=== PATIENT | male | born 1975 | race Caucasian/White ===

== ENCOUNTER 2018-11-22 12:46 | Inpatient (IN) ==
--- NOTE | 2018-11-22 13:19 | Emergency Department Note ---
Disposition Clinical Impression: Cellulitis Qualifiers: Site of cellulitis: trunk Site of cellulitis of trunk: abdominal wall Qualified Code(s): L03.311 - Cellulitis of abdominal wall Disposition: Still a Patient Condition: Good Referrals: Gregory Montero [Primary Care Provider] - Forms: ED Satisfaction Letter, Work/School Release Time of Disposition: 21:01 General Adult HPI - General Chief complaint: ED General Medical Stated complaint: Cath issues/don't feel well Time Seen by Provider: 11/22/18 12:48 Nursing Notes Reviewed: Yes Vital Signs Reviewed: Yes - History of Present Illness HPI Narrative: Male patient with a significant medical history presenting to the emergency department presents complaining of needing his Crawford replaced. He was recently admitted for confusion and the caregiver and fiance report that this is not significantly changed. He has been reporting a headache ever since and as well as well. Patient is well known to this facility and does appear to be deconditioned at this time. He has significant cellulitis to his pannus area on the right side of his abdomen. This appears to be secondary from where he has not had a Crawford placed in the past 8 days. He did actually pull this out and was unable to be replaced. He has been urinating and this is been sitting on the bed with his pain is in it. The area does appear to be erythematous edematous with 2 open wounds. Patient has a history of cellulitis this area. He also has some well-healing lower extremity wounds that have been addressed by caregivers as well. Family reports confusion as well as chilling. They deny any increase in his coughs. Patient has a trach patient. - Related Data Home Medications Medication Instructions Recorded Confirmed ALPRAZolam [Xanax 1 MG Tablet] 1 mg PO TID PRN 11/07/18 11/22/18 Aripiprazole [Abilify] 20 mg PO DAILY 11/07/18 11/22/18 Doxepin [Sinequan] 100 mg PO HS 11/07/18 11/22/18 Insulin Glargine [Lantus] 0 unit SQ ACHS 11/22/18 11/22/18 Insulin LISPRO [Humalog] 0 unit SQ ACHS 11/22/18 11/22/18 Previous Rx's Medication Instructions Recorded Nystatin POWDER [Nystop] 1 appl TP TID #30 gm 11/15/18 Allergies Allergy/AdvReac Type Severity Reaction Status Date / Time ciprofloxacin [From Cipro] AdvReac Hives Verified 11/22/18 13:01 dicyclomine AdvReac Hives Verified 11/22/18 13:01 nalbuphine [From Nubain] AdvReac Hives Verified 11/22/18 13:01 tramadol [From Ultram] AdvReac Hives Verified 11/22/18 13:01 All systems ED: reviewed and negative except as stated. Review of Systems: As Per HPI Constitutional: Reports: chills. Denies: fever Cardiovascular: Denies: chest pain, syncope Respiratory: Denies: cough, dyspnea Gastrointestinal: Reports: abdominal pain. Denies: nausea, vomiting, diarrhea Integumentary: Reports: rash (2 abdomen.) Past Medical History - Past Medical History Attestation: Yes The following information was validated with the patient. Source: patient Medical history: Reports: diabetes Surgical history: Reports: tracheostomy Psychiatric history: Reports: anxiety, bipolar, depression - Social History Smoking Status: Former smoker Smokeless Tobacco Status: No Alcohol use: Reports: none Drug use: Reports: none Physical Exam - General Limitations: no limitations General appearance: alert, in no apparent distress - Head Head exam: atraumatic, normocephalic, normal inspection - Eye Eye exam: Present: normal appearance, PERRL, EOMI - ENT ENT exam: normal exam, normal oropharynx, mucous membranes moist - Neck Neck exam: Present: normal inspection, full ROM, trachea midline - Chest Chest inspection: Present: normal inspection, symmetric chest wall rise - Respiratory Respiratory exam: Present: other (Crackles throughout). Absent: respiratory distress - Cardiovascular Cardiovascular exam: Present: normal rhythm, tachycardia, normal heart sounds - Abdominal Exam Abdominal exam: Present: soft, tenderness (Significant tenderness to palpation of the cellulitic area.), other (Large area of erythema that is edematous with 2 open weeping wounds to the right side of his pannus. Consistent with cellulitis.). Absent: distention, guarding, rebound, rigidity, Acosta's sign, Rovsing's sign, tenderness at McBurney's Point - Extremities Exam Extremities exam: Present: normal inspection, full ROM, other (Multiple lesions to the lower extremities. Different stages of healing.). Absent: tenderness, pedal edema - Neurological Exam Neurological exam: Present: alert, other (Pleasantly confused) - Psychiatric Psychiatric exam: Present: normal affect, normal mood - Skin Skin exam: Present: warm, dry, intact Course Course Narrative: Patient was significant cellulitis to the right abdominal wall secondary to urinating and having his abdomen in this area. Patient does appear to be pleasantly confused. He is frequently refusing treatment and has to be redirected. He did agree to a PICC placement with lab draw. We will get a CT of patient's abdomen to evaluate the extent of the cellulitis. We will start patient on empiric vancomycin as well as Zosyn. He did have recent Pseudomonas in his trachea secretions. There is no fever at this time but he is mildly tachycardic. A Crawford was able to be placed by our tech without complication. This is draining well. - Reevaluation(s) Reevaluation #1: Patient's glucose is elevated. His anion Is 8. Does not appear to be indicated at this time. We are still awaiting a CT of patient's abdomen to evaluate the venous of the cellulitis. I anticipate admission for the patient he has been given Zosyn as well as vancomycin. Reevaluation #2: Patient has been rather complicated since he has been in the emergency department. He is frequently refusing any intervention. He is now agreeable to a CT of his abdomen and for admission. This was an extensive conversation with him and initially he was stating he was sign out AMA however he is agreeable to admission at this time. Time: 19:01 Vital Signs O2 Sat by Pulse Oximetry 100 11/22/18 13:02 Temperature 97.8 F 11/22/18 13:12 Pulse Rate 98 11/22/18 18:30 Respiratory Rate 24 11/22/18 18:30 Blood Pressure 134/70 11/22/18 18:30 O2 Sat by Pulse Oximetry 100 11/22/18 18:30 Oxygen Delivery Oxygen Delivery Trach Mask Medical Decision Making - Medical Records Medical records reviewed: Yes I reviewed the patient's medical records. - Lab Data Lab results reviewed: Yes I reviewed the patient's lab results. Result diagrams: 11/22/18 15:35 11/22/18 15:35 Lab Results 11/22/18 11/22/18 11/22/18 Range/Units 15:35 15:35 15:35 WBC 14.9 H (4.3-11.1) K/mcL RBC 3.42 L (4.19-5.50) M/mcL Hgb 9.8 L (12.9-16.9) g/dL Hct 28.9 L (37.5-50.1) % MCV 84.5 (83.0-100.0) fL MCH 28.7 (28.0-33.3) pg MCHC 33.9 (31.6-35.5) g/dL RDW 13.4 (11.5-14.5) % Plt Count 192 (140-400) K/mcL MPV 10.4 (9.4-12.4) fL Immature Gran % 0.6 (0-4) % Seg Neutrophils % 62.8 % Lymphocytes % 20.8 % Monocytes % 9.6 % Eosinophils % 5.5 % Basophils % 0.7 % Neutrophils # 9.3 H (1.6-8.9) K/mcL Lymphocytes # 3.1 (0.6-4.6) K/mcL Monocytes # 1.4 H (0.0-1.3) K/mcL Eosinophils # 0.8 H (0.0-0.6) K/mcL Basophils # 0.1 (0.0-0.2) K/mcL PT 11.7 (9.4-12.1) Seconds INR 1.0 APTT 28.4 (26.0-36.0) Seconds VBG pH (7.32-7.42) pH Units VBG pCO2 (41-51) mmHg VBG pO2 (25-50) mmHg VBG HCO3 (21-27) mEq/L Sodium 126 L (136-145) mEq/L Potassium 4.4 (3.5-5.1) mEq/L Chloride 96 L (98-107) mEq/L Carbon Dioxide 23 (23-29) mEq/L BUN 32 H (6-20) mg/dL Creatinine 1.12 (0.70-1.30) mg/dL Est GFR ( Amer) > 60 (> 60) Est GFR (Non-Af Amer) > 60 (> 60) BUN/Creatinine Ratio 29 H (6-26) Glucose 585 H* (70-105) mg/dL Calculated Osmolality 296 (280-300) Lactic Acid (0.5-2.2) mmol/L Calcium 8.8 (8.6-10.3) mg/dL Phosphorus 4.1 (2.7-4.5) mg/dL Magnesium 1.8 (1.6-2.6) mg/dL Total Bilirubin 0.3 (0.3-1.0) mg/dL Direct Bilirubin 0.1 (0.0-0.2) mg/dL Indirect Bilirubin 0.2 (0.0-1.2) mg/dL AST 28 (13-39) Units/L ALT 33 (7-52) Units/L Alkaline Phosphatase 205 H (34-104) Units/L Troponin I < 0.03 (< 0.04) ng/mL Serum Total Protein 6.4 (6.4-8.9) g/dL Albumin 2.5 L (3.5-5.7) g/dL Globulin 3.9 H (2.4-3.5) g/dL Albumin/Globulin Ratio 0.6 L (1.1-2.2) Urine Color (Yellow) Urine Clarity (Clear) Urine pH (5.0-8.0) pH Units Ur Specific [place] (1.010-1.025) Urine Protein (Neg-Trace) mg/dL Urine Glucose (UA) (Normal) mg/dL Urine Ketones (Negative) mg/dL Urine Blood (Negative) Urine Nitrite (Negative) Urine Bilirubin (Negative) Urine Urobilinogen (Normal) mg/dL Ur Leukocyte Esterase (Negative) Urine Microscopic RBC (0-3) per hpf Urine Microscopic WBC (0-3) per hpf Ur Squamous Epith Cells (None-Few) per lpf Urine Bacteria (None-Few) per hpf Hyaline Casts (None-Few) per lpf Ur Culture Indicated? (NO) 11/22/18 11/22/18 11/22/18 Range/Units 15:35 15:39 16:54 WBC (4.3-11.1) K/mcL RBC (4.19-5.50) M/mcL Hgb (12.9-16.9) g/dL Hct (37.5-50.1) % MCV (83.0-100.0) fL MCH (28.0-33.3) pg MCHC (31.6-35.5) g/dL RDW (11.5-14.5) % Plt Count (140-400) K/mcL MPV (9.4-12.4) fL Immature Gran % (0-4) % Seg Neutrophils % % Lymphocytes % % Monocytes % % Eosinophils % % Basophils % % Neutrophils # (1.6-8.9) K/mcL Lymphocytes # (0.6-4.6) K/mcL Monocytes # (0.0-1.3) K/mcL Eosinophils # (0.0-0.6) K/mcL Basophils # (0.0-0.2) K/mcL PT (9.4-12.1) Seconds INR APTT (26.0-36.0) Seconds VBG pH 7.39 (7.32-7.42) pH Units VBG pCO2 35 L (41-51) mmHg VBG pO2 125 H (25-50) mmHg VBG HCO3 22 (21-27) mEq/L Sodium (136-145) mEq/L Potassium (3.5-5.1) mEq/L Chloride (98-107) mEq/L Carbon Dioxide (23-29) mEq/L BUN (6-20) mg/dL Creatinine (0.70-1.30) mg/dL Est GFR ( Amer) (> 60) Est GFR (Non-Af Amer) (> 60) BUN/Creatinine Ratio (6-26) Glucose (70-105) mg/dL Calculated Osmolality (280-300) Lactic Acid 1.3 (0.5-2.2) mmol/L Calcium (8.6-10.3) mg/dL Phosphorus (2.7-4.5) mg/dL Magnesium (1.6-2.6) mg/dL Total Bilirubin (0.3-1.0) mg/dL Direct Bilirubin (0.0-0.2) mg/dL Indirect Bilirubin (0.0-1.2) mg/dL AST (13-39) Units/L ALT (7-52) Units/L Alkaline Phosphatase (34-104) Units/L Troponin I (< 0.04) ng/mL Serum Total Protein (6.4-8.9) g/dL Albumin (3.5-5.7) g/dL Globulin (2.4-3.5) g/dL Albumin/Globulin Ratio (1.1-2.2) Urine Color Yellow (Yellow) Urine Clarity Clear (Clear) Urine pH 6.0 (5.0-8.0) pH Units Ur Specific [place] 1.022 (1.010-1.025) Urine Protein 30 H (Neg-Trace) mg/dL Urine Glucose (UA) >=1000 H (Normal) mg/dL Urine Ketones Negative (Negative) mg/dL Urine Blood Large H (Negative) Urine Nitrite Negative (Negative) Urine Bilirubin Negative (Negative) Urine Urobilinogen Normal (Normal) mg/dL Ur Leukocyte Esterase Small H (Negative) Urine Microscopic RBC 30-50 H (0-3) per hpf Urine Microscopic WBC 15-30 H (0-3) per hpf Ur Squamous Epith Cells Many H (None-Few) per lpf Urine Bacteria None Seen (None-Few) per hpf Hyaline Casts None Seen (None-Few) per lpf Ur Culture Indicated? NO. A (NO) - Radiology Data Radiology results reviewed: Yes I reviewed the patient's radiology results. Chest X-Ray 11/22/18 13:02 IMPRESSION: No evidence for acute cardiopulmonary process. D/ / 11/22/2018 13:47:41 Cheikh Jimenez MD / rob Interpreting Provider: Cheikh Jimenez MD - EKG Data EKG #1 EKG attestation: Yes I reviewed and interpreted this EKG. EKG results narrative: Sinus tachycardia at a rate of 105. [place] interval is 165. Castration is Y3. QT is 345. QTC is 456. No signs of acute ischemia. Poor R-wave progression. No significant change from previous EKG dated 11/06/2018. Attestation Statement - Attestation Attestation: I, Carlton Jacob DO, examined this patient [id number] and my medical decision-making was reviewed with Dr. Shira Bolivar, Resident Physician. I agree with the documented findings, disposition and treatment plan as described except to the extent set forth below. Please see my progress notes for details.
[2018-11-22] MEDS ORDERED: 0.9 % Sodium Chloride 500 ML IVC ONE (13:50)
[2018-11-22] MEDS ORDERED: Vancomycin (wt based) 1,000 MG VIAL IVPB SCH (14:00)
--- NOTE | 2018-11-22 14:01 | Emergency Department Note ---
Disposition Clinical Impression: Cellulitis Qualifiers: Site of cellulitis: trunk Site of cellulitis of trunk: abdominal wall Qualified Code(s): L03.311 - Cellulitis of abdominal wall Disposition: Admitted As Inpatient Condition: Fair Referrals: Gregory Montero [Primary Care Provider] - Forms: ED Satisfaction Letter, Work/School Release Time of Disposition: 23:08 General Adult HPI - General Chief complaint: ED General Medical Stated complaint: Cath issues/don't feel well Time Seen by Provider: 11/22/18 12:48 Source: patient, EMS - History of Present Illness Pain Scale: 10 - Related Data Home Medications Medication Instructions Recorded Confirmed ALPRAZolam [Xanax 1 MG Tablet] 1 mg PO TID PRN 11/07/18 11/22/18 Aripiprazole [Abilify] 20 mg PO DAILY 11/07/18 11/22/18 Doxepin [Sinequan] 100 mg PO HS 11/07/18 11/22/18 Insulin Glargine [Lantus] 0 unit SQ ACHS 11/22/18 11/22/18 Insulin LISPRO [Humalog] 0 unit SQ ACHS 11/22/18 11/22/18 Previous Rx's Medication Instructions Recorded Nystatin POWDER [Nystop] 1 appl TP TID #30 gm 11/15/18 Allergies Allergy/AdvReac Type Severity Reaction Status Date / Time ciprofloxacin [From Cipro] AdvReac Hives Verified 11/22/18 13:01 dicyclomine AdvReac Hives Verified 11/22/18 13:01 nalbuphine [From Nubain] AdvReac Hives Verified 11/22/18 13:01 tramadol [From Ultram] AdvReac Hives Verified 11/22/18 13:01 Past Medical History - Past Medical History Medical history: Reports: diabetes Surgical history: Reports: tracheostomy Psychiatric history: Reports: anxiety, bipolar, depression - Social History Smoking Status: Former smoker Smokeless Tobacco Status: No Alcohol use: Reports: none Drug use: Reports: none Physical Exam - General General appearance: alert Course Vital Signs O2 Sat by Pulse Oximetry 100 11/22/18 13:02 Temperature 97.8 F 11/22/18 13:12 Pulse Rate 98 11/22/18 18:30 Respiratory Rate 24 11/22/18 18:30 Blood Pressure 134/70 11/22/18 18:30 O2 Sat by Pulse Oximetry 100 11/22/18 18:30 Oxygen Delivery Oxygen Delivery Trach Mask Medical Decision Making - Lab Data Result diagrams: 11/22/18 15:35 11/22/18 15:35 Lab Results 11/22/18 11/22/18 11/22/18 Range/Units 15:35 15:35 15:35 WBC 14.9 H (4.3-11.1) K/mcL RBC 3.42 L (4.19-5.50) M/mcL Hgb 9.8 L (12.9-16.9) g/dL Hct 28.9 L (37.5-50.1) % MCV 84.5 (83.0-100.0) fL MCH 28.7 (28.0-33.3) pg MCHC 33.9 (31.6-35.5) g/dL RDW 13.4 (11.5-14.5) % Plt Count 192 (140-400) K/mcL MPV 10.4 (9.4-12.4) fL Immature Gran % 0.6 (0-4) % Seg Neutrophils % 62.8 % Lymphocytes % 20.8 % Monocytes % 9.6 % Eosinophils % 5.5 % Basophils % 0.7 % Neutrophils # 9.3 H (1.6-8.9) K/mcL Lymphocytes # 3.1 (0.6-4.6) K/mcL Monocytes # 1.4 H (0.0-1.3) K/mcL Eosinophils # 0.8 H (0.0-0.6) K/mcL Basophils # 0.1 (0.0-0.2) K/mcL PT 11.7 (9.4-12.1) Seconds INR 1.0 APTT 28.4 (26.0-36.0) Seconds VBG pH (7.32-7.42) pH Units VBG pCO2 (41-51) mmHg VBG pO2 (25-50) mmHg VBG HCO3 (21-27) mEq/L Sodium 126 L (136-145) mEq/L Potassium 4.4 (3.5-5.1) mEq/L Chloride 96 L (98-107) mEq/L Carbon Dioxide 23 (23-29) mEq/L BUN 32 H (6-20) mg/dL Creatinine 1.12 (0.70-1.30) mg/dL Est GFR ( Amer) > 60 (> 60) Est GFR (Non-Af Amer) > 60 (> 60) BUN/Creatinine Ratio 29 H (6-26) Glucose 585 H* (70-105) mg/dL Calculated Osmolality 296 (280-300) Lactic Acid (0.5-2.2) mmol/L Calcium 8.8 (8.6-10.3) mg/dL Phosphorus 4.1 (2.7-4.5) mg/dL Magnesium 1.8 (1.6-2.6) mg/dL Total Bilirubin 0.3 (0.3-1.0) mg/dL Direct Bilirubin 0.1 (0.0-0.2) mg/dL Indirect Bilirubin 0.2 (0.0-1.2) mg/dL AST 28 (13-39) Units/L ALT 33 (7-52) Units/L Alkaline Phosphatase 205 H (34-104) Units/L Troponin I < 0.03 (< 0.04) ng/mL Serum Total Protein 6.4 (6.4-8.9) g/dL Albumin 2.5 L (3.5-5.7) g/dL Globulin 3.9 H (2.4-3.5) g/dL Albumin/Globulin Ratio 0.6 L (1.1-2.2) Urine Color (Yellow) Urine Clarity (Clear) Urine pH (5.0-8.0) pH Units Ur Specific [place] (1.010-1.025) Urine Protein (Neg-Trace) mg/dL Urine Glucose (UA) (Normal) mg/dL Urine Ketones (Negative) mg/dL Urine Blood (Negative) Urine Nitrite (Negative) Urine Bilirubin (Negative) Urine Urobilinogen (Normal) mg/dL Ur Leukocyte Esterase (Negative) Urine Microscopic RBC (0-3) per hpf Urine Microscopic WBC (0-3) per hpf Ur Squamous Epith Cells (None-Few) per lpf Urine Bacteria (None-Few) per hpf Hyaline Casts (None-Few) per lpf Ur Culture Indicated? (NO) 11/22/18 11/22/18 11/22/18 Range/Units 15:35 15:39 16:54 WBC (4.3-11.1) K/mcL RBC (4.19-5.50) M/mcL Hgb (12.9-16.9) g/dL Hct (37.5-50.1) % MCV (83.0-100.0) fL MCH (28.0-33.3) pg MCHC (31.6-35.5) g/dL RDW (11.5-14.5) % Plt Count (140-400) K/mcL MPV (9.4-12.4) fL Immature Gran % (0-4) % Seg Neutrophils % % Lymphocytes % % Monocytes % % Eosinophils % % Basophils % % Neutrophils # (1.6-8.9) K/mcL Lymphocytes # (0.6-4.6) K/mcL Monocytes # (0.0-1.3) K/mcL Eosinophils # (0.0-0.6) K/mcL Basophils # (0.0-0.2) K/mcL PT (9.4-12.1) Seconds INR APTT (26.0-36.0) Seconds VBG pH 7.39 (7.32-7.42) pH Units VBG pCO2 35 L (41-51) mmHg VBG pO2 125 H (25-50) mmHg VBG HCO3 22 (21-27) mEq/L Sodium (136-145) mEq/L Potassium (3.5-5.1) mEq/L Chloride (98-107) mEq/L Carbon Dioxide (23-29) mEq/L BUN (6-20) mg/dL Creatinine (0.70-1.30) mg/dL Est GFR ( Amer) (> 60) Est GFR (Non-Af Amer) (> 60) BUN/Creatinine Ratio (6-26) Glucose (70-105) mg/dL Calculated Osmolality (280-300) Lactic Acid 1.3 (0.5-2.2) mmol/L Calcium (8.6-10.3) mg/dL Phosphorus (2.7-4.5) mg/dL Magnesium (1.6-2.6) mg/dL Total Bilirubin (0.3-1.0) mg/dL Direct Bilirubin (0.0-0.2) mg/dL Indirect Bilirubin (0.0-1.2) mg/dL AST (13-39) Units/L ALT (7-52) Units/L Alkaline Phosphatase (34-104) Units/L Troponin I (< 0.04) ng/mL Serum Total Protein (6.4-8.9) g/dL Albumin (3.5-5.7) g/dL Globulin (2.4-3.5) g/dL Albumin/Globulin Ratio (1.1-2.2) Urine Color Yellow (Yellow) Urine Clarity Clear (Clear) Urine pH 6.0 (5.0-8.0) pH Units Ur Specific [place] 1.022 (1.010-1.025) Urine Protein 30 H (Neg-Trace) mg/dL Urine Glucose (UA) >=1000 H (Normal) mg/dL Urine Ketones Negative (Negative) mg/dL Urine Blood Large H (Negative) Urine Nitrite Negative (Negative) Urine Bilirubin Negative (Negative) Urine Urobilinogen Normal (Normal) mg/dL Ur Leukocyte Esterase Small H (Negative) Urine Microscopic RBC 30-50 H (0-3) per hpf Urine Microscopic WBC 15-30 H (0-3) per hpf Ur Squamous Epith Cells Many H (None-Few) per lpf Urine Bacteria None Seen (None-Few) per hpf Hyaline Casts None Seen (None-Few) per lpf Ur Culture Indicated? NO. A (NO) Attestation Statement - Attestation Attestation: I, Carlton Jacob DO, examined this patient [id number] and my medical decision-making was reviewed with Dr. Shira Bolivar, Resident Physician. I agree with the documented findings, disposition and treatment plan as described except to the extent set forth below. Please see my progress notes for details. 43-year-old male presents emergency room with complaint of flow related issues. Patient has chronic indwelling Crawford secondary to nonambulatory state. Patient is also chronically disabled secondary to tracheostomy morbid obesity. Crawford catheter has not been in place for almost a days this time the patient is been urinating on his body and skin. He has large area redness and skin deterioration on the abdominal wall. Currently, the patient is denying chest pain or shortness of breath. He does not have any nausea vomiting or diarrhea. He has had intermittent chills but no fevers documented. Denies any chest pain or shortness of breath. He has been complaining of a headache without any vision change. Patient is otherwise in no distress her abdomen in the transportation blanket on a cotton by EMS. Patient looks very disheveled and on. Skin is flaking off his face and extremities. I seen this patient multiple times in the past that no seen him in this condition. Because of this patient will be placed into an ER bed and in full catheter placed and sepsis evaluation will be completed. Labs including CBC chemistry liver function testing lipase and lactic acid will be collected urinalysis chest x-ray to be completed. Disposition to be determined. First dose of antibiotics will be started secondary to concern for cellulitis. Patient is otherwise stable but does have concerning presentation here today. Disposition to be determined once full workup and treatment course have been established. Patient does have coarse crackles on lung examination but this is typical of him. Heart is regular. Abdomen does have excoriation to the skin and redness. No guarding or rigidity noted. Extremities otherwise stable. Disposition to be determined. See detailed documentation of the physical exam, medical intervention, medical decision-making and disposition in the resident physician's note. No critical care provider the patient's treatment course at this time. 1999 Patient has been waiting for CAT scan for quite a long time and at this point. Patient is declining to have the imaging modality completed before secondary to his own issues. Patient is finally accommodating that at this time. We will continue to wait for the imaging modality to be resulted prior to the patient being admitted for poor general condition and cellulitis. 220 Crawford catheter appears to be outside the bladder just proximal to the prostate. This will be addressed by urology in the inpatient setting. Antibiotic regimen has been started for the cellulitis is confirmed by CT scan. The hospitalist has been patient this time for admission process. 230 Patient was discussed with the hospitalist Dr. Maddox. No other recommendations or concerns are noted at this time. Recommendation was given by me for urology consultation tomorrow. Patient is otherwise clinically stable. He is in no other distress. Patient will have repeat Accu-Chek completed and then insulin will be given if his glucose is still elevated. She will be monitored here in the emergency Department of the admission process is completed
[2018-11-22] MEDS ORDERED: Piperacillin/Tazobactam 3.375 GM in 0.9 % Sodium Chloride Mini Bag 100 ML IVPB ONE (14:09)
[2018-11-22] MEDS ORDERED: Isovue-370 500 ML BOTTLE IVP ONE (14:10)
[2018-11-22 15:46] LABS: Bilirubin,Urine Negative (Negative); Blood,Urine Large (Negative); Clarity,Urine Clear (Clear); Color,Urine Yellow (Yellow); Glucose,Urine (UA) >=1000 mg/dL (Normal); Ketones,Urine Negative (Negative); Leukocyte Esterase,Urine Small (Negative); Nitrite,Urine Negative (Negative); Protein,Urine 30 mg/dL (Neg-Trace); Specific Gravity,Urine 1.022 (1.010-1.025); Urobilinogen,Urine Normal (Normal)
[2018-11-22 16:01] LABS: Basophils # 0.1 K/mcL (0.0-0.2); Basophils % 0.7 %; Eosinophils # 0.8 K/mcL (0.0-0.6); Eosinophils % 5.5 %; Hematocrit 28.9 % (37.5-50.1); Hemoglobin 9.8 g/dL (12.9-16.9); Immature Granulocytes % 0.6 % (0-4); Lymphocytes # 3.1 K/mcL (0.6-4.6); Lymphocytes % 20.8 %; Mean Corpuscular HGB Conc 33.9 g/dL (31.6-35.5); Mean Corpuscular Hemoglobin 28.7 pg (28.0-33.3); Mean Corpuscular Volume 84.5 fL (83.0-100.0); Mean Platelet Volume 10.4 fL (9.4-12.4); Monocytes # 1.4 K/mcL (0.0-1.3); Monocytes % 9.6 %; Neutrophils # 9.3 K/mcL (1.6-8.9); Platelet Count 192 K/mcL (140-400); Red Blood Count 3.42 M/mcL (4.19-5.50); Red Cell Distribution Width 13.4 % (11.5-14.5); Segmented Neutrophils % 62.8 %
[2018-11-22 16:05] LABS: Prothrombin Time 11.7 Seconds (9.4-12.1)
[2018-11-22 16:09] LABS: Activated Partial Thrombo Time 28.4 Seconds (26.0-36.0)
[2018-11-22 16:10] LABS: Bacteria,Urine None Seen per hpf (None-Few); Hyaline Casts,Urine None Seen per lpf (None-Few); RBC,Urine 30-50 per hpf (0-3); Squamous Epithelial Cell,Urine Many per lpf (None-Few); WBC,Urine 15-30 per hpf (0-3)
[2018-11-22 16:27] LABS: Alanine Aminotransferase 33 Units/L (7-52); Albumin 2.5 g/dL (3.5-5.7); Albumin/Globulin Ratio 0.6 (1.1-2.2); Alkaline Phosphatase 205 Units/L (34-104); Aspartate Amino Transferase 28 Units/L (13-39); BUN/Creatinine Ratio 29 (6-26); Bilirubin,Direct 0.1 mg/dL (0.0-0.2); Bilirubin,Indirect 0.2 mg/dL (0.0-1.2); Bilirubin,Total 0.3 mg/dL (0.3-1.0); Blood Urea Nitrogen 32 mg/dL (6-20); Calcium 8.8 mg/dL (8.6-10.3); Carbon Dioxide 23 mEq/L (23-29); Chloride 96 mEq/L (98-107); Globulin 3.9 g/dL (2.4-3.5); Glucose 585 mg/dL (70-105); Magnesium 1.8 mg/dL (1.6-2.6); Osmolality,Calculated 296 (280-300); Phosphorous 4.1 mg/dL (2.7-4.5); Potassium 4.4 mEq/L (3.5-5.1); Sodium 126 mEq/L (136-145); Total Protein 6.4 g/dL (6.4-8.9); Troponin I < 0.03 ng/mL (< 0.04); eGFR For Non-African Americans > 60 (> 60)
[2018-11-22 17:03] LABS: VBG HCO3 22 mEq/L (21-27); VBG PCO2 35 mmHg (41-51); VBG PH 7.39 pH Units (7.32-7.42); VBG PO2 125 mmHg (25-50)
--- NOTE | 2018-11-23 03:23 | Internal Med History&Physical ---
Date of Encounter: 11/23/18 Time of Encounter: 03:15 Internal Medicine - H&P: HPI Chief complaint: replace cardenas Admitted From: Home History of present illness: Mr. Dunaway is a 43 year old male asked medical history of diabetes, chronic tracheostomy and chronic indwelling Cardenas catheter who came to ER to get his Cardenas replaced. Patient is not a good historian and most history was obtained from ER charts and previous charts. He is a nonambulatory due to his morbid obesity and has chronic Cardenas catheter. He pulled out his catheter and for the past few days has been urinating on himself. He complained of some headache in ER. Patient had extensive excoriation his lower extremity and redness on his abdomen and some scaling on his face. He was evaluated in the ER which showed elevated white count, hyperglycemia and some hyponatremia. Patient was started on empiric antibiotics. His Cardenas catheter was replaced. Chest x-ray was unre markable. Patient had abdominal CT done which showed a Cardenas was outside of her bladder in urethra, subcutaneously mouth abdominal wall, splenomegaly and cholelithiasis. Patient was admitted subsequently for further management for cellulitis. He received vancomycin and Zosyn and 500 mL of normal saline and transferred to the floor. Patient was interviewed on the floor. Patient wanted to eat. Complains of itching on his lower extremity. Denies any difficulty breathing. Previously refusing to get Cardenas catheter out even after discussing that his Cardenas catheter was not in the correct position. He agreed to get his Cardenas catheter out and then stop answering any questions. He did not offer any complaints after and wants to talk to the nurse to get food. Past Med Surg Social Fam HX - Past Medical History Medical history: diabetes, seizures Additional medical history: cellulitis of left foot. urinary retention requiring chronic cardenas. trach w/O2 Psychiatric history: anxiety, bipolar, depression - Past Surgical History Surgical History: tracheostomy Additional surgical history: left eye retinal surgery - Social History Smoking Status: Former smoker Smokeless Tobacco Status: No Alcohol use: none Drug use: none - Family History Mother Living Status: Hx Family Cardiac Disorders: Yes Hx Family Endocrine Disorder: Yes Father Living Status: Hx Family Cancer: Yes Internal Medicine - H&P: Meds ALPRAZolam [Xanax 1 MG Tablet] 1 mg PO TID PRN 11/07/18 [History] Aripiprazole [Abilify] 20 mg PO DAILY 11/07/18 [History] Doxepin [Sinequan] 100 mg PO HS 11/07/18 [History] Nystatin POWDER [Nystop] 1 appl TP TID #30 gm 11/15/18 [Rx] Insulin Glargine [Lantus] 0 unit SQ ACHS 11/22/18 [History] Insulin LISPRO [Humalog] 0 unit SQ ACHS 11/22/18 [History] Allergy/AdvReac Type Severity Reaction Status Date / Time ciprofloxacin [From Cipro] AdvReac Hives Verified 11/22/18 13:01 dicyclomine AdvReac Hives Verified 11/22/18 13:01 nalbuphine [From Nubain] AdvReac Hives Verified 11/22/18 13:01 tramadol [From Ultram] AdvReac Hives Verified 11/22/18 13:01 All Systems PM: A 10-system review of systems was performed and is negative for pertinent findings except as documented above in the HPI. - Constitutional Vitals: Temp Pulse Resp BP Pulse Ox 97.6 F 118 14 111/67 100 11/23/18 00:53 11/23/18 00:53 11/23/18 00:53 11/23/18 00:53 11/23/18 00:53 Exam: Constitutional: Vitals as noted. Conversant. No Apparent Distress. Disheveled and lying naked on bed. Non cooperative with exam. ENT : Grossly normal hearing. tracheostomy in place Respiratory : transmitted secretory sounds. No accessory muscle use, rales, rhonchi or wheezes Cardiovascular : tachycardic, +S1, +S2. no murmur, gallop, rubs. GI/Abdominal : Lying on Rt side of belly and not moving for good exam. morbidly obese. cardenas in place Musculoskeletal: no edema or cyanosis. no calf tenderness. Neurological: grossly normal motor and sensory exam. Skin: Multiple excoriation with bleeding noticed on bilateral lower extremities. Skin excoriation and maceration noted in the groin. Could not evaluate complete extent of swelling and erythema present in the groin given his morbid obesity. He refuses to turn to fully examine. Skin flaking on bilateral lower extremities. Internal Med - H&P Results - Labs CBC & Chem 7: 02/26/19 15:35 11/22/18 15:35 Labs: Short CBC 11/22/18 Range/Units 15:35 WBC 14.9 H (4.3-11.1) K/mcL Hgb 9.8 L (12.9-16.9) g/dL Hct 28.9 L (37.5-50.1) % Plt Count 192 (140-400) K/mcL Neutrophils # 9.3 H (1.6-8.9) K/mcL BMP 11/22/18 15:35 Sodium 126 L Potassium 4.4 Chloride 96 L Carbon Dioxide 23 BUN 32 H Creatinine 1.12 Glucose 585 H* Calcium 8.8 Cardiac Enzymes 11/22/18 Range/Units 15:35 Troponin I < 0.03 (< 0.04) ng/mL Liver Function 11/22/18 Range/Units 15:35 Total Bilirubin 0.3 (0.3-1.0) mg/dL Direct Bilirubin 0.1 (0.0-0.2) mg/dL AST 28 (13-39) Units/L ALT 33 (7-52) Units/L Alkaline Phosphatase 205 H (34-104) Units/L Albumin 2.5 L (3.5-5.7) g/dL Urine 11/22/18 Range/Units 15:39 Urine Color Yellow (Yellow) Urine Clarity Clear (Clear) Urine pH 6.0 (5.0-8.0) pH Units Ur Specific [place] 1.022 (1.010-1.025) Urine Protein 30 H (Neg-Trace) mg/dL Urine Glucose (UA) >=1000 H (Normal) mg/dL - ABG Interpretation ABG results: 11/22/18 16:54 VBG pH 7.39 VBG pCO2 35 L VBG pO2 125 H VBG HCO3 22 - Impressions ITS Impressions Chest X-Ray 11/22/18 13:02 IMPRESSION: No evidence for acute cardiopulmonary process. D/ / 11/22/2018 13:47:41 Cheikh Jimenez MD / rob Interpreting Provider: Cheikh Jimenez MD Abdomen/Pelvis CT 11/22/18 14:10 IMPRESSION: Cardenas catheter retention balloon located within the urethra, likely its membranous portion. Subcutaneous edema of the right anterior abdominal wall with overlying skin thickening, compatible with cellulitis. No subcutaneous focal fluid collection. Cholelithiasis. Splenomegaly with morphology of the liver worrisome for chronic disease, progressed since the prior study 2007. Findings were discussed with Dr. Jacob At 10:16 pm on 11/22/2018. D/ / Kia Gallardo Cha, MD / Kia Gallardo Cha, MD Interpreting Provider: Kia Gallardo Cha, MD - Assessment and Plan (1) Cellulitis Current Visit: Yes Status: Acute Assessment and plan: - Continue patient on vancomycin and Zosyn. - f/u blood cultures - Needs cardenas replace to allow better healing - Given patient's uncooperative nature patient had risk of further deterioration. Qualifiers: Site of cellulitis: trunk Site of cellulitis of trunk: abdominal wall Qualified Code(s): L03.311 - Cellulitis of abdominal wall (2) Hyperglycemia Current Visit: No Status: Acute Assessment and plan: - Patient has diabetes. - Keep patient on sliding scale insulin every 4 hr and start on Levemir. (3) Chronic indwelling Cardenas catheter Current Visit: No Status: Chronic Assessment and plan: - Has Cardenas catheter that is small position. Previously refused to take it out but now agrees to it. We will remove the Cardenas catheter if he continues to agree. 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
[2018-11-23] MEDS ORDERED: Naloxone 0.4 MG/ML INJ IVP PRN (03:35)
[2018-11-23] MEDS ORDERED: ALPRAZolam 1 MG TABLET PO PRN (03:56)
[2018-11-23] MEDS ORDERED: Insulin DETEMIR 100 UNIT/ML X5UNITS SQ ONE (04:15)
[2018-11-23 06:05] LABS: Mean Corpuscular Hemoglobin 28.6 pg (28.0-33.3); Platelet Count 257 K/mcL (140-400)
[2018-11-23 06:06] LABS: Hematocrit 34.9 % (37.5-50.1); Hemoglobin 11.6 g/dL (12.9-16.9); Mean Corpuscular HGB Conc 33.2 g/dL (31.6-35.5); Mean Corpuscular Volume 86.2 fL (83.0-100.0); Mean Platelet Volume 10.5 fL (9.4-12.4); Red Blood Count 4.05 M/mcL (4.19-5.50); Red Cell Distribution Width 13.7 % (11.5-14.5)
[2018-11-23 06:23] LABS: Calcium 8.8 mg/dL (8.6-10.3); Potassium 5.4 mEq/L (3.5-5.1)
[2018-11-23 07:07] LABS: Lymphocytes # 0.6 K/mcL (0.6-4.6); Neutrophils # 30.6 K/mcL (1.6-8.9)
[2018-11-23 07:08] LABS: Platelet Estimate Normal (Normal)
[2018-11-23] MEDS: Insulin LISPRO 300 UNITS/3 ML VIAL SQ SCH ×2 (07:52→13:18)
[2018-11-23] MEDS: ARIPiprazole 10 MG TABLET PO SCH (07:52)
[2018-11-23] MEDS: Piperacillin/Tazobactam 3.375 GM in 0.9 % Sodium Chloride Mini Bag 100 ML IVPB SCH ×2 (07:54→18:45)
--- NOTE | 2018-11-23 09:55 | Infectious Disease Consult ---
Date of Encounter: 11/23/18 Time of Encounter: 09:51 Assessment and Plan (1) Sepsis Status: Acute Assessment and plan: Patient on admission met sepsis criteria with 2 SIRS: WBC 14.9, HR 108. -Etiology unknown, likely bacterial from skin angus -Source likely cellulitis -patient continues to meet severe sepsis criteria -afebrile, HR 102, hemodynamically stable -WBC 31.2 (yesterday 14.9) increased -lactic acid 6.3, 2.4,1.3 worsening -11/22/19 and 18 blood cultures NTD x2 -Urinalysis: 30 protein, glucose > 1000, blood, leukocyte esterase, WBC 15-30 -respiratory culture on 11/08/2018 growing pseudomonas aeruginosa and Providencia stuartti -Chest x-ray unremarkable -Abdomen/pelvis CT demonstrating Cardenas catheter in the urethra, subcutaneous edema of the right anterior abdominal wall with overlying skin thickening compatible with cellulitis. No subcutaneous focal fluid collection. Cholelithiasis. Splenomegaly with morphology of liver worrisome for chronic disease which is progressed since 2007. Plan: -will continue current antibiotic regimen for MRSA coverage for the cellulitis and due to recent respiratory culture on 11/08/2018 -continue vancomycin day 2 -continue Zosyn day 2 -continue nystatin -ordered respiratory infectious panel -await blood cultures -repeat lactic acid Qualifiers: Sepsis type: sepsis due to unspecified organism Qualified Code(s): A41.9 - Sepsis, unspecified organism (2) Cellulitis Status: Acute Assessment and plan: Cellulitis of the upper extremities bilaterally and abdomen -Abdomen/pelvis CT demonstrating Cardenas catheter in the urethra, subcutaneous edema of the right anterior abdominal wall with overlying skin thickening compatible with cellulitis. No subcutaneous focal fluid collection. Cholelithiasis. Splenomegaly with morphology of liver worrisome for chronic disease which is progressed since 2007. -It is that of the patient also have multiple cuts on his lower extremities bilaterally and he has some erythema in the inguinal region Plan: -currently receiving vancomycin -currently receiving Zosyn -continue nystatin Qualifiers: Site of cellulitis: trunk Site of cellulitis of trunk: abdominal wall Qualified Code(s): L03.311 - Cellulitis of abdominal wall (3) Altered mental status Status: Acute Assessment and plan: Patient is with altered mental status alert and oriented x 0. There is no family at the bedside. This is in the setting of severe sepsis. -Etiology is most likely secondary infection including cellulitis, possible viral infection -of note, during patient's last admission and 11/08/2018 he was noted to be confused then as well which was secondary to infection of pneumonia and DKA. Acute intracranial abnormalities such as stroke had been ruled out with Angio CT head and head CT. Plan: -treat the infectious etiology -primary team to manage Qualifiers: Altered mental status type: unspecified Qualified Code(s): R41.82 - Altered mental status, unspecified (4) Chronic indwelling Cardenas catheter Status: Chronic Assessment and plan: Chronic indwelling Cardenas catheter. Patient presented complaining that it fell out. In the ED when replaced was found on imaging to be in incorrect placement and needs replaced again. -Urinalysis: 30 protein, glucose > 1000, blood, leukocyte esterase, WBC 15-30 -Spoke with the patient's nurse whom stated he would replace the Cardenas catheter (5) Tracheostomy in place Status: Chronic Assessment and plan: Chronic tracheostomy in place. (6) Diabetes mellitus Status: Chronic Assessment and plan: History of diabetes taking insulin. -Glucose elevated -management per primary team Qualifiers: Diabetes mellitus type: type 2 Diabetes mellitus usp insulin use: with usp use Diabetes mellitus complication status: with hyperglycemia Qualified Code(s): E11.65 - Type 2 diabetes mellitus with hyperglycemia; Z79.4 - [facility] (current) use of insulin (7) Morbid obesity with BMI of 60.0-69.9, adult Status: Chronic Assessment and plan: Patient is morbidly obese. Bedbound, immobile. Infectious Disease HPI - Data of Consult Patient: new to practice Consult date: 11/23/18 Requesting Physician: Aliyah Maddox MD Primary Care Provider: Gregory Montero - Consult Narrative Reason for consult: Cellulitis History of present illness: Mr. Dunaway is a 43 year old male who presented on 11/22/2018 complaining of needing Cardenas catheter replaced. Infectious disease was consulted on 11/23/2018 for cellulitis and increasing leukocytosis with recommendations on antibiotics. The patient has a past medical history of chronic Cardenas catheter, tracheostomy, morbid obesity bedbound, diabetes. Upon examination of the patient he is alert and oriented to person only and is sitting in bed comfortably. There is no family at bedside. The patient is unable to give a full history so medical records are primary source of information. Per medical records the patient presents the ED complaining of not being able to replace his chronic Cardenas catheter after he pulled it out. Per records this is happened many times in the past. On examination the patient was noted to be erythematous particularly on his upper extremities bilaterally and abdomen. In the ED he complained of a headache, itchiness on lower extremities, chills. Denied shortness of breath. Initial vitals in the ED demonstrated afebrile, HR 108, BP 121/63. WBC 14.9, hemoglobin 9.8, platelets 192, sodium 126, potassium 4.4, creatinine 1.12, glucose 585, lactic acid 1.3, alkaline phosphatase 205. Urinalysis: 30 protein, glucose > 1000, blood, leukocyte esterase, WBC 15-30. Chest x-ray unremarkable. Abdomen/pelvis CT demonstrating Cardenas catheter in the urethra, subcutaneous edema of the right anterior abdominal wall with overlying skin thickening compatible with cellulitis. No subcutaneous focal fluid collection. Cholelithiasis. Splenomegaly with morphology of liver worrisome for chronic disease which is progressed since 2007. In the ED blood cultures were taken, the patient was given vancomycin and Zosyn. Cardenas catheter was replaced, however based on abdominal CT it shows that is in incorrect placing. CC: Aliyah Maddox MD Past Med Surg Social Fam HX - Past Medical History Source: old records reviewed Medical history: diabetes, seizures Additional medical history: cellulitis of left foot. urinary retention requiring chronic cardenas. trach w/O2 Psychiatric history: anxiety, bipolar, depression - Past Surgical History Surgical History: tracheostomy Additional surgical history: left eye retinal surgery - Social History Smoking Status: Former smoker Smokeless Tobacco Status: No Alcohol use: none Drug use: none - Family History Father Living Status: Hx Family Cancer: Yes Mother Living Status: Hx Family Cardiac Disorders: Yes Hx Family Endocrine Disorder: Yes Infectious Disease-CN:Meds RX: ALPRAZolam [Xanax 1 MG Tablet] 1 mg PO TID PRN 11/07/18 [History] RX: Aripiprazole [Abilify] 20 mg PO DAILY 11/07/18 [History] RX: Doxepin [Sinequan] 100 mg PO HS 11/07/18 [History] RX: Nystatin POWDER [Nystop] 1 appl TP TID #30 gm 02/19/19 [Rx] Insulin Glargine [Lantus] 0 unit SQ ACHS 11/22/18 [History] Insulin LISPRO [Humalog] 0 unit SQ ACHS 11/22/18 [History] Allergy/AdvReac Type Severity Reaction Status Date / Time ciprofloxacin [From Cipro] AdvReac Hives Verified 11/22/18 13:01 dicyclomine AdvReac Hives Verified 11/22/18 13:01 nalbuphine [From Nubain] AdvReac Hives Verified 11/22/18 13:01 tramadol [From Ultram] AdvReac Hives Verified 11/22/18 13:01 ROS unobtainable: due to mental status Exam - Constitutional Vitals: Temp Pulse Resp BP Pulse Ox 97.4 F L 102 22 109/69 100 11/23/18 07:20 11/23/18 07:20 11/23/18 07:20 11/23/18 07:20 11/23/18 07:20 Exam: Gen.: Vitals noted. No acute distress. AAOx0 HEENT: oropharynx clear, Normocephalic, atraumatic, trach Neck: Supple. No adenopathy. Cardiac: RRR, no murmur, +S1/S2 Pulmonary: bilaterally rhonchi, no wheezes or rales, equal chest expansion Abdomen: soft, nontender, Bowel sounds noted, no guarding skin: erythema on bilateral upper extremities, right side of abdomen Extremities: no BLE edema, nontender calf, no cyanosis Neuro: A&Ox0, moves all extremities Infectious Disease CN: Results - Labs CBC & Chem 7: 11/24/18 04:41 11/24/18 04:41 Cultures: Cultures 11/22/18 15:35 Blood Culture - Preliminary Peripheral Venipuncture Culture is incubating and being continuously monitored for growth. Final report to follow. 11/22/18 15:35 Blood Culture - Preliminary Peripheral Venipuncture Culture is incubating and being continuously monitored for growth. Final report to follow. Serology: Serology 11/22/18 Range/Units 15:39 Urine Color Yellow (Yellow) Urine Clarity Clear (Clear) Urine pH 6.0 (5.0-8.0) pH Units Ur Specific [place] 1.022 (1.010-1.025) Urine Protein 30 H (Neg-Trace) mg/dL Urine Glucose (UA) >=1000 H (Normal) mg/dL Urine Ketones Negative (Negative) mg/dL Urine Blood Large H (Negative) Urine Nitrite Negative (Negative) Urine Bilirubin Negative (Negative) Urine Urobilinogen Normal (Normal) mg/dL Ur Leukocyte Esterase Small H (Negative) Urine Microscopic RBC 30-50 H (0-3) per hpf Urine Microscopic WBC 15-30 H (0-3) per hpf Ur Squamous Epith Cells Many H (None-Few) per lpf Urine Bacteria None Seen (None-Few) per hpf Hyaline Casts None Seen (None-Few) per lpf Ur Culture Indicated? NO. A (NO) Consult Discharge Plan - Plan Referrals: Gregory Montero [Primary Care Provider] - - Attending Attestation I examined this patient and my medical decision-making was reviewed with the Resident Physician. I agree with the documented findings, disposition and treatment plan as described except to the extent set forth below. This is an addendum to original report dictated by resident physician. Please refer to residents note for full detail. Patient is a 43-year-old gentleman who has an extensive past medical history mentioned below who was otherwise bedridden for the most part. Has a tracheos tano. An indwelling Cardenas catheter with morbid obesity BMI 45.8 presented to [place] with altered mental status and confusion. When patient arrives he was noted to be septic. Patient was also noted to have cellulitis of his pannus. We were asked to evaluate the patients make further recommendations. Assessment and plan: 1.sepsis 2.cellulitis 3.diabetes mellitus 4.morbid obesity 5.indwelling Cardenas catheter and tracheostomy Recommendations Based on the patients previous cultures from the sputum back in October 2018 which was positive for pseudomonas aeruginosa and Providencia stuartti we will start the patient on broad-spectrum antibiotics including vancomycin and Zosyn. Goal vancomycin trough 10-15. Monitor labs and for drug toxicity. Duration of treatment probably 14 days but hopefully we can de-escalate on oral option eventually
[2018-11-23 10:02] LABS: Estimated Average Glucose 272 mg/dl; Hemoglobin A1C 11.1 %
[2018-11-23] MEDS: Nystatin POWDER 30 GM BOTTLE TP SCH ×3 (11:45→21:05)
[2018-11-23] MEDS: 0.9 % Sodium Chloride 1,000 ML IVC SCH ×2 (11:45→21:05)
[2018-11-23] MEDS ORDERED: Insulin LISPRO 300 UNITS/3 ML VIAL SQ ONE (12:50)
[2018-11-23 14:13] LABS: Potassium 5.3 mEq/L (3.5-5.1)
[2018-11-23] MEDS ORDERED: *HR* Dextrose 50 % in Water (Syg) 50 ML SYRINGE IVP PRN ×3 (14:34→19:49)
[2018-11-23] MEDS ORDERED: Insulin Human Regular 100 UNIT in 0.9 % Sodium Chloride 100 ML IVC SCH ×2 (14:45→21:15)
[2018-11-23] MEDS ORDERED: Dextrose Gel 15 GM/37.5 ML TUBE PO PRN ×4 (14:58→19:49)
[2018-11-23] MEDS ORDERED: D5% in Water 1,000 ML IVC PRN ×2 (14:58→19:49)
[2018-11-23] MEDS ORDERED: Dextrose 4 GM Chewable Tablets PO PRN ×4 (14:58→19:49)
--- NOTE | 2018-11-23 16:12 | Electrocardiograph Report ---
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
[2018-11-23] MEDS ORDERED: Insulin LISPRO 300 UNITS/3 ML VIAL SQ SCH ×2 (16:30→21:00)
--- NOTE | 2018-11-23 17:05 | Internal Med Progress Note ---
Hospitalist Progress Note - Encounter Date of Encounter: 11/23/18 Time of Encounter: 17:00 - Subjective Interval History: 43 year old male asked medical history of diabetes, chronic tracheostomy and chronic indwelling Cardenas catheter who came to ER to get his Cardenas replaced. Patient is not a good historian and most history was obtained from ER charts and previous charts. He is a nonambulatory due to his morbid obesity and has chronic Cardenas catheter. He pulled out his catheter and for the past few days has been urinating on himself. He complained of some headache in ER. Patient had extensive excoriation his lower extremity and redness on his abdomen and some scaling on his face - Exam Vitals: Temp Pulse Resp BP Pulse Ox 97.7 F 108 22 118/68 100 11/23/18 15:57 11/23/18 15:57 11/23/18 15:57 11/23/18 15:57 11/23/18 15:57 Exam: Constitutional: Vitals as noted. Conversant. No Apparent Distress. Disheveled and lying naked on bed. Non cooperative with exam. ENT : Grossly normal hearing. tracheostomy in place Respiratory : transmitted secretory sounds. No accessory muscle use, rales, rhonchi or wheezes Cardiovascular : tachycardic, +S1, +S2. no murmur, gallop, rubs. GI/Abdominal : Lying on Rt side of belly and not moving for good exam. morbidly obese. cardenas in place Musculoskeletal: no edema or cyanosis. no calf tenderness. Neurological: grossly normal motor and sensory exam. Skin: Multiple excoriation with bleeding noticed on bilateral lower extremities. Skin excoriation and maceration noted in the groin. Could not evaluate comp lete extent of swelling and erythema present in the groin given his morbid obesity. He refuses to turn to fully examine. Skin flaking on bilateral lower extremities. - Assessment and Plan (1) Sepsis Current Visit: Yes Status: Acute Assessment and Plan: Sesis 2/2 to cellulitis vs pneumonia. Continue vanc and zosyn. F/U cultures. Worsening leukocytosis with elevated lactate. ID recs appreciated (2) Cellulitis Current Visit: Yes Status: Acute Assessment and Plan: - Continue patient on vancomycin and Zosyn. - f/u blood cultures - Needs cardenas replace to allow better healing - Given patient's uncooperative nature patient had risk of further deterioration. (3) Hyperglycemia Current Visit: Yes Status: Acute Assessment and Plan: Uncontrolled hyperglycemia with blood sugar in the high 500s. Patient has no anion gap Started on an insulin drip due to severely uncontrolled hyperglycemia. Transition back to basal insulin once sugars are controlled (4) Morbid obesity with BMI of 60.0-69.9, adult Current Visit: Yes Status: Chronic Assessment and Plan: Diet and weight loss (5) Tracheostomy in place Current Visit: Yes Status: Chronic Assessment and Plan: Continue trach care (6) Diabetes mellitus Current Visit: Yes Status: Chronic Assessment and Plan: As above (7) Chronic indwelling Cardenas catheter Current Visit: Yes Status: Chronic Assessment and Plan: Catheter was dislodged prior to admission. Urology consulted for replacement due to difficulty in placing - Time Spent with Patient Total time spent is greater than 50% in coordination of care (as documented) at patient's floor/unit and/or counseling patient: Internal Medicine: Result - Labs CBC & Chem 7: 11/23/18 05:45 11/23/18 12:40 Labs: Short CBC 11/23/18 Range/Units 05:45 WBC 31.2 H* D (4.3-11.1) K/mcL Hgb 11.6 L D (12.9-16.9) g/dL Hct 34.9 L (37.5-50.1) % Plt Count 257 (140-400) K/mcL Neutrophils # 30.6 H (1.6-8.9) K/mcL BMP 11/23/18 11/23/18 05:45 12:40 Sodium 130 L 127 L Potassium 5.4 H 5.3 H Chloride 98 97 L Carbon Dioxide 20 L 19 L BUN 35 H 38 H Creatinine 1.59 H 1.68 H Glucose 589 H* 582 H* Calcium 8.8 8.0 L - ABG Interpretation ABG results: PT/INR, D-dimer PT 11.7 Seconds (9.4-12.1) 11/22/18 15:35 - Impressions Impressions Abdomen/Pelvis CT 11/22/18 14:10 IMPRESSION: Cardenas catheter retention balloon located within the urethra, likely its membranous portion. Subcutaneous edema of the right anterior abdominal wall with overlying skin thickening, compatible with cellulitis. No subcutaneous focal fluid collection. Cholelithiasis. Splenomegaly with morphology of the liver worrisome for chronic disease, progressed since the prior study 2007. Findings were discussed with Dr. Jacob At 10:16 pm on 11/22/2018. D/ / Kia Gallardo Cha, MD / Kia Gallardo Cha, MD Interpreting Provider: Kia Gallardo Cha, MD Consult Discharge Plan - Plan Referrals: Gregory Montero [Primary Care Provider] - (1) Sepsis Qualifiers: Sepsis type: sepsis due to unspecified organism Qualified Code(s): A41.9 - Sepsis, unspecified organism (2) Cellulitis Qualifiers: Site of cellulitis: trunk Site of cellulitis of trunk: abdominal wall Qualified Code(s): L03.311 - Cellulitis of abdominal wall (6) Diabetes mellitus Qualifiers: Diabetes mellitus type: type 2 Diabetes mellitus [employer] insulin use: with residential use Diabetes mellitus complication status: with hyperglycemia Qualified Code(s): E11.65 - Type 2 diabetes mellitus with hyperglycemia; Z79.4 - FDC (current) use of insulin
[2018-11-23] MEDS ORDERED: Vancomycin 1 EACH in 0.9 % Sodium Chloride 250 ML IVPB SCH (18:45)
--- NOTE | 2018-11-23 19:07 | Urology - Consult Note ---
Date of Encounter: 11/23/18 Time of Encounter: 19:05 - Assessment and Plan (1) Sepsis Current Visit: Yes Status: Acute Assessment and plan: Patient sepsis likely secondary to UTI and chronic indwelling urethral catheter. Recommend to continue broad-spectrum antimicrobial coverage until cultures return. Qualifiers: Sepsis type: sepsis due to unspecified organism Qualified Code(s): A41.9 - Sepsis, unspecified organism (2) Chronic indwelling Cardenas catheter Current Visit: Yes Status: Chronic Assessment and plan: Patient's catheter balloon was deflated. I then gently advanced the catheter with some resistance around the patient's prostate. and then reinflated the catheter balloon which appeared to stay within the patient's bladder. At this time the patient's catheter is draining adequately and without hematuria. Recommend to keep catheter in place. Patient will need follow-up in 3-4 weeks for catheter change in the urology office. Please call with any questions. Urology CN:HPI Consult date: 11/23/18 Reason for consult Urology: Difficult Cardenas Requesting physician: Tete Layton History of present illness: Phillip is a 43-year-old male with a history of problems with chronic indwelling urethral catheter secondary to urinary incontinence. Patient admitted yesterday secondary to possible UTI with sepsis. Patient had catheter placed in the emergency department as the patient had removed his catheter at home. CT scan done last night showed that the catheter balloon was within the prostatic urethra. Patient's catheter though had been draining adequately. Patient is unable to answer questions correctly. He appears confused. Past Med Surg Social Fam HX - Past Medical History Medical history: diabetes, seizures Additional medical history: cellulitis of left foot. urinary retention requiring chronic cardenas. trach w/O2 Psychiatric history: anxiety, bipolar, depression - Past Surgical History Surgical History: tracheostomy Additional surgical history: left eye retinal surgery - Social History Smoking Status: Former smoker Smokeless Tobacco Status: No Alcohol use: none Drug use: none - Family History Mother Living Status: Hx Family Cardiac Disorders: Yes Hx Family Endocrine Disorder: Yes Father Living Status: Hx Family Cancer: Yes Medications and Allergies ALPRAZolam [Xanax 1 MG Tablet] 1 mg PO TID PRN 11/07/18 [History] Aripiprazole [Abilify] 20 mg PO DAILY 11/07/18 [History] Doxepin [Sinequan] 100 mg PO HS 11/07/18 [History] Nystatin POWDER [Nystop] 1 appl TP TID #30 gm 11/15/18 [Rx] Insulin Glargine [Lantus] 0 unit SQ ACHS 11/22/18 [History] Insulin LISPRO [Humalog] 0 unit SQ ACHS 11/22/18 [History] Allergy/AdvReac Type Severity Reaction Status Date / Time ciprofloxacin [From Cipro] AdvReac Hives Verified 11/22/18 13:01 dicyclomine AdvReac Hives Verified 11/22/18 13:01 nalbuphine [From Nubain] AdvReac Hives Verified 11/22/18 13:01 tramadol [From Ultram] AdvReac Hives Verified 11/22/18 13:01 Review of Systems ROS unobtainable: due to mental status Exam Initial Vital Signs Pulse Ox 100 11/22/18 13:02 General/Neuological: Awake but confused Eyes: normal pupils, non-icteric Neck: no lymphadenopathy noted, supple to touch Cardiovascular: RRR, no murmurs Respiratory: normal respiratory effort, clear bilaterally ABD: soft, nontender, no masses palpated, severely morbidly obese limiting evaluation of intra-abdominal viscera Back: Patient unable to roll over on side for back evaluation : Unable to evaluate phallus secondary to severe morbidly obesity. Catheter draining clear urine Rectal: smooth prostate, no nodules Skin: Multiple areas of redness in the inguinal region as well as upper thighs. Musculoskeletal: Patient unable to move lower extremities secondary to obesity. Normal range of motion of upper extremities Urology Results - Labs 11/23/18 05:45 11/23/18 12:40 Abnormal lab results WBC 31.2 K/mcL (4.3-11.1) H* D 11/23/18 05:45 RBC 4.05 M/mcL (4.19-5.50) L 11/23/18 05:45 Hgb 11.6 g/dL (12.9-16.9) L D 11/23/18 05:45 Hct 34.9 % (37.5-50.1) L 11/23/18 05:45 Band Neutrophils % 24.0 % (0-4) H 11/23/18 05:45 Neutrophils # 30.6 K/mcL (1.6-8.9) H 11/23/18 05:45 Monocytes # 1.4 K/mcL (0.0-1.3) H 11/22/18 15:35 Eosinophils # 0.8 K/mcL (0.0-0.6) H 11/22/18 15:35 VBG pCO2 35 mmHg (41-51) L 11/22/18 16:54 VBG pO2 125 mmHg (25-50) H 11/22/18 16:54 Sodium 127 mEq/L (136-145) L 11/23/18 12:40 Potassium 5.3 mEq/L (3.5-5.1) H 11/23/18 12:40 Chloride 97 mEq/L (98-107) L 11/23/18 12:40 Carbon Dioxide 19 mEq/L (23-29) L 11/23/18 12:40 BUN 38 mg/dL (6-20) H 11/23/18 12:40 Creatinine 1.68 mg/dL (0.70-1.30) H 11/23/18 12:40 Est GFR ( Amer) 55 (> 60) L 11/23/18 12:40 Est GFR (Non-Af Amer) 45 (> 60) L 11/23/18 12:40 Glucose 582 mg/dL (70-105) H* 11/23/18 12:40 POC Glucose 358 mg/dL (70-99) H 11/23/18 18:30 Hemoglobin A1c 11.1 % (-5.6) H 11/23/18 05:45 Lactic Acid 6.3 mmol/L (0.5-2.2) H* 11/23/18 11:46 Calcium 8.0 mg/dL (8.6-10.3) L 11/23/18 12:40 Alkaline Phosphatase 205 Units/L (34-104) H 11/22/18 15:35 Albumin 2.5 g/dL (3.5-5.7) L 11/22/18 15:35 Globulin 3.9 g/dL (2.4-3.5) H 11/22/18 15:35 Albumin/Globulin Ratio 0.6 (1.1-2.2) L 11/22/18 15:35 Urine Protein 30 mg/dL (Neg-Trace) H 11/22/18 15:39 Urine Glucose (UA) >=1000 mg/dL (Normal) H 11/22/18 15:39 Urine Blood Large (Negative) H 11/22/18 15:39 Ur Leukocyte Esterase Small (Negative) H 11/22/18 15:39 Urine Microscopic RBC 30-50 per hpf (0-3) H 11/22/18 15:39 Urine Microscopic WBC 15-30 per hpf (0-3) H 11/22/18 15:39 Ur Squamous Epith Cells Many per lpf (None-Few) H 11/22/18 15:39 Ur Culture Indicated? NO. (NO) A 11/22/18 15:39 Vancomycin Trough 30 mcg/mL (5-10) H 11/23/18 17:24 Diabetes panel 11/23/18 11/23/18 11/23/18 Range/Units 05:45 05:45 12:40 Sodium 130 L 127 L (136-145) mEq/L Potassium 5.4 H 5.3 H (3.5-5.1) mEq/L Chloride 98 97 L (98-107) mEq/L Carbon Dioxide 20 L 19 L (23-29) mEq/L BUN 35 H 38 H (6-20) mg/dL Creatinine 1.59 H 1.68 H (0.70-1.30) mg/dL Glucose 589 H* 582 H* (70-105) mg/dL Hemoglobin A1c 11.1 H ( - 5.6) % Calcium 8.8 8.0 L (8.6-10.3) mg/dL Calcium panel 11/23/18 11/23/18 Range/Units 05:45 12:40 Calcium 8.8 8.0 L (8.6-10.3) mg/dL Pituitary panel 11/23/18 11/23/18 Range/Units 05:45 12:40 Sodium 130 L 127 L (136-145) mEq/L Potassium 5.4 H 5.3 H (3.5-5.1) mEq/L Chloride 98 97 L (98-107) mEq/L Carbon Dioxide 20 L 19 L (23-29) mEq/L BUN 35 H 38 H (6-20) mg/dL Creatinine 1.59 H 1.68 H (0.70-1.30) mg/dL Glucose 589 H* 582 H* (70-105) mg/dL Calcium 8.8 8.0 L (8.6-10.3) mg/dL Adrenal panel 11/23/18 11/23/18 Range/Units 05:45 12:40 Sodium 130 L 127 L (136-145) mEq/L Potassium 5.4 H 5.3 H (3.5-5.1) mEq/L Chloride 98 97 L (98-107) mEq/L Carbon Dioxide 20 L 19 L (23-29) mEq/L BUN 35 H 38 H (6-20) mg/dL Creatinine 1.59 H 1.68 H (0.70-1.30) mg/dL Glucose 589 H* 582 H* (70-105) mg/dL Calcium 8.8 8.0 L (8.6-10.3) mg/dL All other labs normal. Consult Discharge Plan - Plan Referrals: Gregory Montero [Primary Care Provider] -
[2018-11-23] MEDS ORDERED: Insulin DETEMIR 100 UNIT/ML X5UNITS SQ SCH ×4 (21:00)
[2018-11-24] MEDS: Piperacillin/Tazobactam 3.375 GM in 0.9 % Sodium Chloride Mini Bag 100 ML IVPB SCH ×2 (01:15→09:36)
[2018-11-24] MEDS: 0.9 % Sodium Chloride 1,000 ML IVC SCH (04:35)
[2018-11-24] MEDS ORDERED: *HR* Promethazine 25 MG/ML VIAL IVP PRN (04:40)
[2018-11-24] MEDS ORDERED: Insulin DETEMIR 100 UNIT/ML X5UNITS SQ ONE (04:41)
[2018-11-24 04:55] LABS: Hemoglobin 10.3 g/dL (12.9-16.9); Mean Corpuscular HGB Conc 34.3 g/dL (31.6-35.5); Mean Corpuscular Hemoglobin 29.1 pg (28.0-33.3); Mean Corpuscular Volume 84.7 fL (83.0-100.0); Mean Platelet Volume 10.4 fL (9.4-12.4); Platelet Count 248 K/mcL (140-400); Red Blood Count 3.54 M/mcL (4.19-5.50); Red Cell Distribution Width 13.9 % (11.5-14.5)
[2018-11-24 05:13] LABS: Calcium 7.6 mg/dL (8.6-10.3); Magnesium 1.7 mg/dL (1.6-2.6); Phosphorous 3.5 mg/dL (2.7-4.5); Potassium 5.3 mEq/L (3.5-5.1)
[2018-11-24 05:16] LABS: Eosinophils # 0.5 K/mcL (0.0-0.6); Lymphocytes # 3.6 K/mcL (0.6-4.6); Monocytes # 1.5 K/mcL (0.0-1.3); Neutrophils # 19.9 K/mcL (1.6-8.9); Platelet Estimate Normal (Normal)
--- NOTE | 2018-11-24 06:19 | Event Note ---
Date of Encounter: 11/23/18 Time of Encounter: 22:29 Insulin gtt stopped at 22:29 w/pts BG at 171. Levemir held and HS SS administered w/instructions to continue hourly accuchecks. Notified at 04:35 that BG was 279. 10 units of Levemir ordered once. Pt. also reported episode of vomiting. IVP Phenergan ordered. Nurse instructed to continue monitoring BG closely and notify immediately of any changes.
[2018-11-24] MEDS ORDERED: Insulin LISPRO 300 UNITS/3 ML VIAL SQ SCH (07:30)
--- NOTE | 2018-11-24 08:50 | Infectious Disease Progress No ---
Date of Encounter: 11/24/18 Time of Encounter: 08:47 - Assessment and Plan (1) Sepsis Current Visit: Yes Status: Acute Patient on admission met sepsis criteria with 2 SIRS: WBC 14.9, HR 108. -Etiology unknown, likely bacterial from skin angus -Source likely cellulitis. Possible upper respiratory infection. -patient continues to meet severe sepsis criteria -afebrile, HR 102, hemodynamically stable -WBC 25.5 (yesterday 31.2) improving -lactic acid 6.3, 2.4,1.3 worsening -11/22/19 and 18 blood cultures NTD x2 -Urinalysis: 30 protein, glucose > 1000, blood, leukocyte esterase, WBC 15-30 -respiratory culture on 11/08/2018 growing pseudomonas aeruginosa and Providencia stuartti -Chest x-ray unremarkable -Abdomen/pelvis CT demonstrating Crawford catheter in the urethra, subcutaneous edema of the right anterior abdominal wall with overlying skin thickening compatible with cellulitis. No subcutaneous focal fluid collection. Cholelithiasis. Splenomegaly with morphology of liver worrisome for chronic disease which is progressed since 2007. Plan: -patient has been afebrile and WBC is slowly improving on current antibiotic regimen. The patient is alert and oriented times 3 today which is improved from yesterday. -will continue current antibiotic regimen for MRSA coverage for the cellulitis and due to recent respiratory culture on 11/08/2018 -continue vancomycin day 3 -continue Zosyn day 3 -continue nystatin -ordered respiratory infectious panel -await blood cultures -repeat lactic acid Qualifiers: Sepsis type: sepsis due to unspecified organism Qualified Code(s): A41.9 - Sepsis, unspecified organism (2) Cellulitis Current Visit: Yes Status: Acute Cellulitis of the upper extremities bilaterally and abdomen -Abdomen/pelvis CT demonstrating Crawford catheter in the urethra, subcutaneous edema of the right anterior abdominal wall with overlying skin thickening compatible with cellulitis. No subcutaneous focal fluid collection. Cholelithiasis. Splenomegaly with morphology of liver worrisome for chronic disease which is progressed since 2007. - The patient has excoriation on his lower extremities bilaterally and erythema of the right side of abdomen face in the bed and pannus. Appears unchanged. Plan: -currently receiving vancomycin -currently receiving Zosyn -continue nystatin Qualifiers: Site of cellulitis: trunk Site of cellulitis of trunk: abdominal wall Qualified Code(s): L03.311 - Cellulitis of abdominal wall (3) Altered mental status Current Visit: No Status: Acute On initial examination the patient was altered mental status alert and oriented x 0. There was no family at the bedside. This is in the setting of severe sepsis. -Etiology is most likely secondary infection including cellulitis, possible viral infection -of note, during patient's last admission and 11/08/2018 he was noted to be confused then as well which was secondary to infection of pneumonia and DKA. Acute intracranial abnormalities such as stroke had been ruled out with Angio CT head and head CT. -On examination today the patient is alert and oriented times 3 today which is improved from yesterday. Plan: -treat the infectious etiology -primary team to manage Qualifiers: Altered mental status type: unspecified Qualified Code(s): R41.82 - Altered mental status, unspecified (4) GUS (acute kidney injury) Current Visit: Yes Status: Acute Acute kidney injury likely prerenal. Creatinine at admission 1.12 -Etiology is likely secondary to sepsis with hypovolemia decreased perfusion, may also be due to vancomycin with elevated trough of 30 -creatinine clearance 121 -creatinine 1.67 -baseline creatinine 0.9-1.1) -Management per primary team. -Will renal dose medications (5) Chronic indwelling Crawford catheter Current Visit: Yes Status: Chronic Chronic indwelling Crawford catheter. Patient presented complaining that it fell out. In the ED when replaced was found on imaging to be in incorrect placement and needs replaced again. -Urinalysis: 30 protein, glucose > 1000, blood, leukocyte esterase, WBC 15-30 -the urologist had been consulted and replaced Crawford catheter (6) Tracheostomy in place Current Visit: Yes Status: Chronic Chronic tracheostomy in place (7) Diabetes mellitus Current Visit: Yes Status: Chronic History of diabetes taking insulin. -Glucose elevated -management per primary team Qualifiers: Diabetes mellitus type: type 2 Diabetes mellitus senior care insulin use: with senior care use Diabetes mellitus complication status: with hyperglycemia Qualified Code(s): E11.65 - Type 2 diabetes mellitus with hyperglycemia; Z79.4 - halfway (current) use of insulin (8) Morbid obesity with BMI of 60.0-69.9, adult Current Visit: Yes Status: Chronic Patient is morbidly obese. Bedbound, immobile. - Subjective Interval history: Examined at bedside today, he appears with chronically poor hygiene with buildup of layers of dried skin. He is again laying on his right side of which appears to be that he normally lies on with the erythema on the right side of his abdomen that is on the bed. The patient is alert and oriented times 3 today which is improved from yesterday. There is no family at the bedside. He was able to divulge that the erythema on his arms and abdomen/pannus began a week ago. He also stated that he came to the ED due to being unable to replace his Crawford catheter. He also admitted to fever and chills at home. He denied shortness of breath, abdominal pain, chest pain. Infect Dis PN-Objective Data - Labs CBC & Chem 7: 11/24/18 04:41 11/24/18 04:41 Labs: Laboratory Results - last 24 hr 11/23/18 11/23/18 11/23/18 05:45 07:20 07:22 WBC RBC Hgb Hct MCV MCH MCHC RDW Plt Count MPV Seg Neutrophils % Lymphocytes % Monocytes % Eosinophils % Neutrophils # Lymphocytes # Monocytes # Eosinophils # Platelet Estimate Sodium Potassium Chloride Carbon Dioxide BUN Creatinine Est GFR ( Amer) Est GFR (Non-Af Amer) BUN/Creatinine Ratio Glucose POC Glucose 566 H* 519 H* Est Mean Plasma Glucose 272 Hemoglobin A1c 11.1 H Calculated Osmolality Lactic Acid Calcium Phosphorus Magnesium Vancomycin Trough Random Vancomycin 11/23/18 11/23/18 11/23/18 11:46 12:32 12:33 WBC RBC Hgb Hct MCV MCH MCHC RDW Plt Count MPV Seg Neutrophils % Lymphocytes % Monocytes % Eosinophils % Neutrophils # Lymphocytes # Monocytes # Eosinophils # Platelet Estimate Sodium Potassium Chloride Carbon Dioxide BUN Creatinine Est GFR ( Amer) Est GFR (Non-Af Amer) BUN/Creatinine Ratio Glucose POC Glucose > 600 H* 561 H* Est Mean Plasma Glucose Hemoglobin A1c Calculated Osmolality Lactic Acid 6.3 H* Calcium Phosphorus Magnesium Vancomycin Trough Random Vancomycin 11/23/18 11/23/18 11/23/18 12:40 17:24 18:30 WBC RBC Hgb Hct MCV MCH MCHC RDW Plt Count MPV Seg Neutrophils % Lymphocytes % Monocytes % Eosinophils % Neutrophils # Lymphocytes # Monocytes # Eosinophils # Platelet Estimate Sodium 127 L Potassium 5.3 H Chloride 97 L Carbon Dioxide 19 L BUN 38 H Creatinine 1.68 H Est GFR ( Amer) 55 L Est GFR (Non-Af Amer) 45 L BUN/Creatinine Ratio 23 Glucose 582 H* POC Glucose 358 H Est Mean Plasma Glucose Hemoglobin A1c Calculated Osmolality 300 Lactic Acid Calcium 8.0 L Phosphorus Magnesium Vancomycin Trough 30 H Random Vancomycin 11/23/18 11/23/18 11/24/18 20:52 22:20 04:33 WBC RBC Hgb Hct MCV MCH MCHC RDW Plt Count MPV Seg Neutrophils % Lymphocytes % Monocytes % Eosinophils % Neutrophils # Lymphocytes # Monocytes # Eosinophils # Platelet Estimate Sodium Potassium Chloride Carbon Dioxide BUN Creatinine Est GFR ( Amer) Est GFR (Non-Af Amer) BUN/Creatinine Ratio Glucose POC Glucose 260 H 171 H 238 H Est Mean Plasma Glucose Hemoglobin A1c Calculated Osmolality Lactic Acid Calcium Phosphorus Magnesium Vancomycin Trough Random Vancomycin 11/24/18 11/24/18 11/24/18 04:41 04:41 04:41 WBC 25.5 H RBC 3.54 L Hgb 10.3 L Hct 30.0 L MCV 84.7 MCH 29.1 MCHC 34.3 RDW 13.9 Plt Count 248 MPV 10.4 Seg Neutrophils % 78.0 Lymphocytes % 14.0 Monocytes % 6.0 Eosinophils % 2.0 Neutrophils # 19.9 H Lymphocytes # 3.6 Monocytes # 1.5 H Eosinophils # 0.5 Platelet Estimate Normal Sodium 128 L Potassium 5.3 H Chloride 104 Carbon Dioxide 17 L BUN 39 H Creatinine 1.67 H Est GFR ( Amer) 55 L Est GFR (Non-Af Amer) 45 L BUN/Creatinine Ratio 23 Glucose 244 H POC Glucose Est Mean Plasma Glucose Hemoglobin A1c Calculated Osmolality 283 Lactic Acid Calcium 7.6 L Phosphorus 3.5 Magnesium 1.7 Vancomycin Trough Random Vancomycin 27 Cultures: Cultures 11/22/18 15:35 Blood Culture - Preliminary Peripheral Venipuncture Culture is incubating and being continuously monitored for growth. Final report to follow. 11/22/18 15:35 Blood Culture - Preliminary Peripheral Venipuncture Culture is incubating and being continuously monitored for growth. Final report to follow. Serology 11/22/18 Range/Units 15:39 Urine Color Yellow (Yellow) Urine Clarity Clear (Clear) Urine pH 6.0 (5.0-8.0) pH Units Ur Specific [place] 1.022 (1.010-1.025) Urine Protein 30 H (Neg-Trace) mg/dL Urine Glucose (UA) >=1000 H (Normal) mg/dL Urine Ketones Negative (Negative) mg/dL Urine Blood Large H (Negative) Urine Nitrite Negative (Negative) Urine Bilirubin Negative (Negative) Urine Urobilinogen Normal (Normal) mg/dL Ur Leukocyte Esterase Small H (Negative) Urine Microscopic RBC 30-50 H (0-3) per hpf Urine Microscopic WBC 15-30 H (0-3) per hpf Ur Squamous Epith Cells Many H (None-Few) per lpf Urine Bacteria None Seen (None-Few) per hpf Hyaline Casts None Seen (None-Few) per lpf Ur Culture Indicated? NO. A (NO) Exam - Constitutional Vitals: Temp Pulse Resp BP Pulse Ox 98.4 F 110 20 114/65 100 11/24/18 07:02 11/24/18 07:02 11/24/18 07:02 11/24/18 07:02 11/24/18 07:02 Exam: Gen.: Vitals noted. No acute distress. AAOx3, appears with poor hygiene HEENT: oropharynx clear, Normocephalic, trach, Neck: Supple. No adenopathy. Cardiac: RRR, no murmur, +S1/S2 Pulmonary: right-sided rhonchi, no wheezes or rales, equal chest expansion Abdomen: soft, nontender, Bowel sounds noted, no guarding skin: erythema on bilateral upper extremities, right side of abdomen and pannus , excoriation of bilateral lower extremities Extremities: no BLE edema, nontender calf, no cyanosis Neuro: A&Ox3, moves all extremities Consult Discharge Plan - Plan Referrals: Gregory Montero [Primary Care Provider] -
[2018-11-24] MEDS: ARIPiprazole 10 MG TABLET PO SCH (09:34)
[2018-11-24] MEDS: Nystatin POWDER 30 GM BOTTLE TP SCH (09:36)
[2018-11-24 11:15] VITALS: BP 114/68
[2018-11-24] MEDS ORDERED: Aminoglycoside Consult 1 EACH MC ONE (12:00)
--- NOTE | 2018-11-24 19:16 | Discharge Summary ---
Orders not resulted at time of discharge: Pending orders 11/22/18 15:35 Culture,Blood [BC] Stat 11/23/18 14:00 Respiratory Infection Panel [MOLMIC] Routine Date of Encounter: 11/24/18 Time of Encounter: 19:00 - Discharge Diagnosis (1) Sepsis Priority: Primary Status: Acute Assessment and Plan: 43 year old male asked medical history of diabetes, chronic tracheostomy and chronic indwelling Cardenas catheter who came to ER to get his Cardenas replaced. Patient is not a good historian and most history was obtained from ER charts and previous charts. He is a nonambulatory due to his morbid obesity and has chronic Cardenas catheter. He pulled out his catheter and for the past few days has been urinating on himself. He complained of some headache in ER. Patient had extensive excoriation his lower extremity and redness on his abdomen and some scaling on his face. He was evaluated in the ER which showed elevated white count, hyperglycemia and some hyponatremia. Patient was started on empiric antibiotics. His Cardenas catheter was replaced. Chest x-ray was unremarkable. Patient had abdominal CT done which showed a Cardenas was outside of her bladder in urethra, subcutaneously mouth abdominal wall, splenomegaly and cholelithiasis He was assessed with sepsis 2/2 to cellulitis vs pneumonia and was started on vanc and zosyn. He initially had worsening leukocytosis which began to trend conchis n on antibiotics. He also had elevated blood sugars due to noncompliance but no DKA. He was started on an insulin drip and transitioned to sc insulin. He also had a dislodged cardenas catheter replaced by urology. Patient was very non compliant and belligerent thoughout his hospital course and signed out AMA on 11/24. Risks of signing out AMA were explained to him and he fully understood and still insisted on leaving. 35 minutes was spent discharging this patient Qualifiers: Sepsis type: sepsis due to unspecified organism Qualified Code(s): A41.9 - Sepsis, unspecified organism (2) Cellulitis Priority: Primary Status: Acute Qualifiers: Site of cellulitis: trunk Site of cellulitis of trunk: abdominal wall Qualified Code(s): L03.311 - Cellulitis of abdominal wall (3) Hyperglycemia Priority: Primary Status: Acute (4) Morbid obesity with BMI of 60.0-69.9, adult Priority: Primary Status: Chronic (5) Tracheostomy in place Priority: Primary Status: Chronic (6) Diabetes mellitus Priority: Primary Status: Chronic Qualifiers: Diabetes mellitus type: type 2 Diabetes mellitus mcc insulin use: with mcc use Diabetes mellitus complication status: with hyperglycemia Qualified Code(s): E11.65 - Type 2 diabetes mellitus with hyperglycemia; Z79.4 - group home (current) use of insulin (7) Chronic indwelling Cardenas catheter Priority: Primary Status: Chronic Hospital course: Mr. Dunaway is a 43 year old male - Time Spent with Patient Total time spent providing and/or coordinating discharge services: - Discharge Medications Prescriptions: No Action Doxepin [Sinequan] 100 mg PO HS ALPRAZolam [Xanax 1 MG Tablet] 1 mg PO TID PRN PRN Reason: Anxiety Aripiprazole [Abilify] 20 mg PO DAILY Nystatin POWDER [Nystop] 1 appl TP TID #30 gm Insulin LISPRO [Humalog] 0 unit SQ ACHS Insulin Glargine [Lantus] 0 unit SQ ACHS Home Medications: ALPRAZolam [Xanax 1 MG Tablet] 1 mg PO TID PRN 11/07/18 [History] Aripiprazole [Abilify] 20 mg PO DAILY 11/07/18 [History] Doxepin [Sinequan] 100 mg PO HS 11/07/18 [History] Nystatin POWDER [Nystop] 1 appl TP TID #30 gm 11/15/18 [Rx] Insulin Glargine [Lantus] 0 unit SQ ACHS 11/22/18 [History] Insulin LISPRO [Humalog] 0 unit SQ ACHS 11/22/18 [History] Allergies/Adverse Reactions: Allergy/AdvReac Type Severity Reaction Status Date / Time ciprofloxacin [From Cipro] AdvReac Hives Verified 11/22/18 13:01 dicyclomine AdvReac Hives Verified 11/22/18 13:01 nalbuphine [From Nubain] AdvReac Hives Verified 11/22/18 13:01 tramadol [From Ultram] AdvReac Hives Verified 11/22/18 13:01 Date of admission: 11/23/18 03:35 Primary care physician: Gregory Montero Consults: 11/22/18 14:07 Consult to PICC team [Consult to Invasive Line Access Team] [CONS] Stat Reason for Consult: need for IV Line Type: PICC 11/22/18 16:23 Consult to Invasive Line Access Team [CONS] Routine Reason for Consult: limited vascular access w/morbid obesity BMI>60 need for labs and multiple medications/infusions Line Type: EPIV 11/23/18 00:56 Consult to Pastoral Services [CONS] Routine Comment: per patient request 11/23/18 08:16 Consult to Infectious Diseases [CONS] Routine Consulting Provider: [facility] [place] Reason for Consult: cellulitis with worsening leukocytosis on antibiotics Call Completed: No 11/23/18 16:59 Consult to Urology [CONS] Stat Consulting Provider: Urology [facility] Reason for Consult: Patient needs cardenas placed by urology Call Completed: No - Constitutional Vitals: Temp Pulse Resp BP Pulse Ox 98.7 F 112 15 114/68 100 11/24/18 11:11 11/24/18 11:11 11/24/18 11:11 11/24/18 11:11 11/24/18 11:11 Exam: Constitutional: Vitals as noted. Conversant. No Apparent Distress. Disheveled and lying naked on bed. Non cooperative with exam. ENT : Grossly normal hearing. tracheostomy in place Respiratory : transmitted secretory sounds. No accessory muscle use, rales, rhonchi or wheezes Cardiovascular : tachycardic, +S1, +S2. no murmur, gallop, rubs. GI/Abdominal : Lying on Rt side of belly and not moving for good exam. morbidly obese. cardenas in place Musculoskeletal: no edema or cyanosis. no calf tenderness. Neurological: grossly normal motor and sensory exam. Skin: Multiple excoriation with bleeding noticed on bilateral lower extremities. Skin excoriation and maceration noted in the groin. Could not evaluate complete extent of swelling and erythema present in the groin given his morbid obesity. He refuses to turn to fully examine. Skin flaking on bilateral lower extremities. - Patient Status Disposition: Left Against Medical Advice Condition: Fair - Discharge Instructions Follow Up With: Gregory Montero [Primary Care Provider] -
== END 2018-11-24 12:01 | disposition left against medical advice (07) | DRG 720 ==
LOC: EMEROOARM 12:46 → 3ANU 12:46
PROVIDERS: ADMIT Internal Medicine; ATTEND Internal Medicine

== ENCOUNTER 2019-07-06 14:42 | Inpatient (IN) ==
[2019-07-06] MEDS ORDERED: 0.9 % Sodium Chloride 2,000 ML ONE (15:22)
[2019-07-06] MEDS: 0.9 % Sodium Chloride 1,000 ML IVC SCH ×2 (15:33→16:01)
[2019-07-06 15:37] LABS: Bilirubin,Urine Negative (Negative); Blood,Urine Large (Negative); Clarity,Urine Turbid (Clear); Color,Urine Yellow (Yellow); Glucose,Urine (UA) 500 mg/dL (Normal); Ketones,Urine Negative (Negative); Leukocyte Esterase,Urine Large (Negative); Nitrite,Urine Negative (Negative); PH,Urine 7.5 pH Units (5.0-8.0); Protein,Urine 100 mg/dL (Neg-Trace); Specific Gravity,Urine 1.021 (1.010-1.025); Urobilinogen,Urine Normal (Normal)
[2019-07-06 15:38] LABS: Bacteria,Urine Many per hpf (None-Few); Hyaline Casts,Urine None Seen per lpf (None-Few); Squamous Epithelial Cell,Urine Many per lpf (None-Few); WBC,Urine TNTC per hpf (0-3)
[2019-07-06 15:44] LABS: Hematocrit 22.6 % (37.5-50.1); Hemoglobin 7.9 g/dL (12.9-16.9); Mean Corpuscular Hemoglobin 28.5 pg (28.0-33.3); Mean Corpuscular Volume 81.6 fL (83.0-100.0); Platelet Count 233 K/mcL (140-400); Red Blood Count 2.77 M/mcL (4.19-5.50); Red Cell Distribution Width 12.2 % (11.5-14.5)
[2019-07-06 15:47] LABS: VBG HCO3 16 mEq/L (21-27); VBG PCO2 21 mmHg (41-51); VBG PH 7.48 pH Units (7.32-7.42); VBG PO2 125 mmHg (25-50)
[2019-07-06 15:47] LABS: Yeast,Urine Few per hpf (None Seen)
[2019-07-06 15:50] LABS: INR 1.4; Prothrombin Time 15.6 Seconds (9.4-12.1)
[2019-07-06 15:52] LABS: White Blood Count 52.3 K/mcL (4.3-11.1)
[2019-07-06] MEDS ORDERED: Piperacillin/Tazobactam 3.375 GM in 0.9 % Sodium Chloride Mini Bag 100 ML IVPB ONE (15:52)
[2019-07-06 15:53] LABS: Activated Partial Thrombo Time 25.2 Seconds (26.0-36.0)
[2019-07-06 16:07] LABS: Lymphocytes # 3.1 K/mcL (0.6-4.6); Neutrophils # 49.2 K/mcL (1.6-8.9); Platelet Estimate Normal (Normal)
[2019-07-06 16:11] LABS: Albumin 2.1 g/dL (3.5-5.7); Albumin/Globulin Ratio 0.5 (1.1-2.2); Bilirubin,Direct 0.3 mg/dL (0.0-0.2); Bilirubin,Indirect 0.3 mg/dL (0.0-1.2); Bilirubin,Total 0.6 mg/dL (0.3-1.0); Calcium 7.6 mg/dL (8.6-10.3); Globulin 4.3 g/dL (2.4-3.5); Magnesium 1.7 mg/dL (1.6-2.6); Phosphorous 2.4 mg/dL (2.7-4.5); Potassium 4.4 mEq/L (3.5-5.1); Total Protein 6.4 g/dL (6.4-8.9); Troponin I 0.12 ng/mL (< 0.04)
[2019-07-06] MEDS ORDERED: *HR* Dextrose 50 % in Water (Syg) 50 ML SYRINGE IVP PRN ×2 (16:18→18:47)
[2019-07-06] MEDS ORDERED: Insulin Human Regular 100 UNIT in 0.9 % Sodium Chloride 100 ML IVC SCH (16:30)
[2019-07-06] MEDS ORDERED: 0.9 % Sodium Chloride 500 ML IVC ONE (17:50)
[2019-07-06] MEDS ORDERED: Insulin Regular, Human 100 UNIT/ML IV PRN (18:47)
[2019-07-06] MEDS ORDERED: Naloxone 0.4 MG/ML INJ IVP PRN (18:51)
[2019-07-06] MEDS ORDERED: ALPRAZolam 1 MG TABLET PO PRN (18:59)
[2019-07-06] MEDS ORDERED: Ondansetron 4 MG/2 ML VIAL IVP PRN (18:59)
[2019-07-06] MEDS ORDERED: 0.9 % Sodium Chloride 1,000 ML IVC SCH ×2 (19:00)
[2019-07-06] MEDS: Insulin Human Regular 100 UNIT in 0.9 % Sodium Chloride 100 ML IVC SCH (20:30)
[2019-07-06 20:37] LABS: Calcium 7.2 mg/dL (8.6-10.3); Potassium 3.4 mEq/L (3.5-5.1)
[2019-07-06] MEDS ORDERED: 0.9 % Sodium Chloride 1,000 ML ONE (21:27)
[2019-07-06] MEDS: Sennosides/Docusate Sodium TABLET PO SCH (22:01)
[2019-07-06] MEDS: *HR* Heparin 5,000 UNIT/ML VIAL SQ SCH (22:13)
[2019-07-06] MEDS ORDERED: 0.9 % Sodium Chloride 1,000 ML IVC ONE (22:26)
[2019-07-06] MEDS: 0.9 % Sodium Chloride w KCl 20 MEQ/1,000 ML MLS IVC SCH (22:41)
[2019-07-07] MEDS: Piperacillin/Tazobactam 3.375 GM in 0.9 % Sodium Chloride Mini Bag 100 ML IVPB SCH ×4 (00:22→23:22)
[2019-07-07 00:36] LABS: Calcium 7.4 mg/dL (8.6-10.3); Potassium 3.4 mEq/L (3.5-5.1)
[2019-07-07] MEDS: D5% in 0.45% NACL w KCl 20 MEQ/1,000 ML MLS IVC PRN ×2 (00:56→05:05)
[2019-07-07] MEDS: 0.9 % Sodium Chloride w KCl 20 MEQ/1,000 ML MLS IVC SCH ×2 (03:11→03:12)
[2019-07-07] MEDS: *HR* Heparin 5,000 UNIT/ML VIAL SQ SCH ×3 (05:05→21:05)
[2019-07-07 05:19] LABS: Hematocrit 25.1 % (37.5-50.1); Hemoglobin 8.8 g/dL (12.9-16.9); Mean Corpuscular HGB Conc 35.1 g/dL (31.6-35.5); Mean Corpuscular Hemoglobin 28.6 pg (28.0-33.3); Mean Corpuscular Volume 81.5 fL (83.0-100.0); Mean Platelet Volume 10.5 fL (9.4-12.4); Platelet Count 263 K/mcL (140-400); Red Blood Count 3.08 M/mcL (4.19-5.50); Red Cell Distribution Width 12.2 % (11.5-14.5)
[2019-07-07 05:26] LABS: White Blood Count 59.8 K/mcL (4.3-11.1)
[2019-07-07 05:41] LABS: Lymphocytes # 2.4 K/mcL (0.6-4.6); Monocytes # 1.2 K/mcL (0.0-1.3); Neutrophils # 56.2 K/mcL (1.6-8.9)
[2019-07-07 05:48] LABS: Calcium 7.6 mg/dL (8.6-10.3); Potassium 4.2 mEq/L (3.5-5.1)
[2019-07-07 06:42] LABS: Magnesium 1.5 mg/dL (1.6-2.6)
[2019-07-07] MEDS: Sennosides/Docusate Sodium TABLET PO SCH ×2 (08:00→20:42)
[2019-07-07] MEDS ORDERED: Dextrose Gel 15 GM/37.5 ML TUBE PO PRN ×4 (08:27→19:02)
[2019-07-07] MEDS ORDERED: D5% in Water 1,000 ML IVC PRN ×2 (08:27→19:02)
[2019-07-07] MEDS ORDERED: *HR* Dextrose 50 % in Water (Syg) 50 ML SYRINGE IVP PRN ×2 (08:27→19:02)
[2019-07-07] MEDS ORDERED: Insulin LISPRO 300 UNITS/3 ML VIAL SQ SCH (08:30)
[2019-07-07] MEDS ORDERED: Nystatin POWDER 30 GM BOTTLE TP SCH (09:00)
[2019-07-07] MEDS ORDERED: Insulin DETEMIR 100 UNIT/ML X5UNITS SQ SCH (09:00)
[2019-07-07] MEDS ORDERED: ARIPiprazole 10 MG TABLET PO SCH (09:00)
[2019-07-07] MEDS ORDERED: *HR* HYDROcodone/Acet 10/325 mg TABLET PO PRN (09:29)
[2019-07-07 10:28] LABS: Calcium 7.2 mg/dL (8.6-10.3); Potassium 5.4 mEq/L (3.5-5.1)
[2019-07-07] MEDS ORDERED: 0.9 % Sodium Chloride 1,000 ML ONE (10:31)
[2019-07-07] MEDS ORDERED: Calcium Gluconate 1gm/50mL 1 GM/50 ML BAG IVPB PRN (11:03)
[2019-07-07] MEDS ORDERED: Potassium Phosphate 44 MEQ in 0.9 % Sodium Chloride 250 ML IVPB PRN (11:03)
[2019-07-07] MEDS: Insulin LISPRO 300 UNITS/3 ML VIAL SQ SCH ×3 (11:26→21:05)
[2019-07-07 12:04] LABS: Estimated Average Glucose 306 mg/dl
[2019-07-07] MEDS: 0.9 % Sodium Chloride 1,000 ML IVC SCH ×2 (12:47→20:41)
[2019-07-07 13:03] LABS: VBG Ionized Calcium 0.92 mmol/L (1.15-1.35)
[2019-07-07 13:20] LABS: Blood Urea Nitrogen 47 mg/dL (6-20); Carbon Dioxide 19 mEq/L (23-29); Chloride 94 mEq/L (98-107); Glucose 96 mg/dL (70-105); Osmolality,Calculated 260 (280-300); Potassium 4.4 mEq/L (3.5-5.1); Sodium 119 mEq/L (136-145); Troponin I < 0.03 ng/mL (< 0.04)
[2019-07-07 13:36] LABS: Acinetobacter baumannii by PCR Not Detected (Not Detect); Enterococcus by PCR Not Detected (Not Detect); Staphylococcus aureus by PCR Not Detected (Not Detect); Staphylococcus by PCR DETECTED (Not Detect); Streptococcus agalactiae(B)PCR Not Detected (Not Detect); Streptococcus by PCR Not Detected (Not Detect); Streptococcus pneumoniae PCR Not Detected (Not Detect); Streptococcus pyogenes (A) PCR Not Detected (Not Detect); mecA Methicillin-Resist Gene DETECTED (Not Detect)
[2019-07-07 13:37] LABS: Candida albicans by PCR Not Detected (Not Detect); Candida glabrata by PCR Not Detected (Not Detect); Candida krusei by PCR Not Detected (Not Detect); Candida parapsilosis by PCR Not Detected (Not Detect); Candida tropicalis by PCR Not Detected (Not Detect); Enterobacter cloacae Cmplx PCR Not Detected (Not Detect); Enterobacteriaceae by PCR Not Detected (Not Detect); Escherichia coli by PCR Not Detected (Not Detect); Klebsiella oxytoca by PCR Not Detected (Not Detect); Klebsiella pneumoniae by PCR Not Detected (Not Detect); Proteus by PCR Not Detected (Not Detect); Pseudomonas aeruginosa by PCR Not Detected (Not Detect); Serratia marcescens by PCR Not Detected (Not Detect)
[2019-07-07 14:37] LABS: BUN/Creatinine Ratio 16 (6-26); eGFR For African Americans 29 (> 60); eGFR For Non-African Americans 24 (> 60)
[2019-07-07 18:03] LABS: Calcium 7.2 mg/dL (8.6-10.3); Potassium 4.8 mEq/L (3.5-5.1)
[2019-07-07] MEDS ORDERED: 0.9 % Sodium Chloride 1,000 ML IVC SCH (18:15)
[2019-07-07] MEDS ORDERED: Ondansetron 4 MG/2 ML VIAL IVP PRN (19:02)
[2019-07-07] MEDS ORDERED: Naloxone 0.4 MG/ML INJ IVP PRN (19:02)
[2019-07-07] MEDS ORDERED: ALPRAZolam 1 MG TABLET PO PRN (19:02)
[2019-07-07] MEDS ORDERED: AMMONIUM LACTATE APPL TP SCH (21:00)
[2019-07-07] MEDS: Ammonium Lactate 30 APPL/225 GM BOTTLE TP SCH (21:03)
[2019-07-07] MEDS: Insulin DETEMIR 100 UNIT/ML X5UNITS SQ SCH (21:05)
[2019-07-07 21:55] LABS: Magnesium 1.9 mg/dL (1.6-2.6); Phosphorous 2.9 mg/dL (2.7-4.5)
[2019-07-08] MEDS: 0.9 % Sodium Chloride 1,000 ML IVC SCH ×3 (03:16→19:51)
[2019-07-08] MEDS: *HR* Heparin 5,000 UNIT/ML VIAL SQ SCH (06:26)
[2019-07-08] MEDS: Piperacillin/Tazobactam 3.375 GM in 0.9 % Sodium Chloride Mini Bag 100 ML IVPB SCH ×2 (08:57→16:34)
[2019-07-08] MEDS: Nystatin POWDER 30 GM BOTTLE TP SCH (09:00)
[2019-07-08] MEDS: Insulin DETEMIR 100 UNIT/ML X5UNITS SQ SCH ×2 (09:00→21:57)
[2019-07-08] MEDS: Ammonium Lactate 30 APPL/225 GM BOTTLE TP SCH ×2 (09:00→22:07)
[2019-07-08] MEDS: ARIPiprazole 10 MG TABLET PO SCH (09:01)
[2019-07-08] MEDS: Sennosides/Docusate Sodium TABLET PO SCH ×2 (09:01→21:57)
[2019-07-08] MEDS: predniSONE 5 MG TABLET PO SCH (09:01)
[2019-07-08] MEDS: Insulin LISPRO 300 UNITS/3 ML VIAL SQ SCH ×4 (09:02→21:57)
[2019-07-08 11:25] LABS: Hematocrit 21.3 % (37.5-50.1); Mean Corpuscular HGB Conc 34.3 g/dL (31.6-35.5); Mean Corpuscular Volume 81.6 fL (83.0-100.0); Mean Platelet Volume 10.5 fL (9.4-12.4); Platelet Count 203 K/mcL (140-400); Red Blood Count 2.61 M/mcL (4.19-5.50); Red Cell Distribution Width 12.6 % (11.5-14.5)
[2019-07-08 11:27] LABS: VBG Ionized Calcium 0.99 mmol/L (1.15-1.35)
[2019-07-08 11:32] LABS: Hemoglobin 7.3 g/dL (12.9-16.9)
[2019-07-08 11:47] LABS: Magnesium 1.7 mg/dL (1.6-2.6); Phosphorous 2.6 mg/dL (2.7-4.5); Potassium 4.1 mEq/L (3.5-5.1)
[2019-07-08 12:02] LABS: Monocytes # 2.2 K/mcL (0.0-1.3); Neutrophils # 37.8 K/mcL (1.6-8.9); Platelet Estimate Normal (Normal)
[2019-07-08] MEDS ORDERED: Calcium Gluconate 2,000 MG in 0.9 % Sodium Chloride 100 ML IVPB ONE (15:08)
[2019-07-08] MEDS: *HR* HYDROcodone/Acet 10/325 mg TABLET PO PRN ×2 (16:47→22:12)
[2019-07-08] MEDS: Insulin Human Regular 100 UNIT in 0.9 % Sodium Chloride 100 ML IVC SCH (19:52)
[2019-07-09] MEDS: Piperacillin/Tazobactam 3.375 GM in 0.9 % Sodium Chloride Mini Bag 100 ML IVPB SCH ×2 (00:37→11:21)
[2019-07-09] MEDS: 0.9 % Sodium Chloride 1,000 ML IVC SCH ×2 (05:41→14:09)
[2019-07-09] MEDS ORDERED: Morphine Sulfate 2 MG/ML SYRINGE IVP PRN (07:22)
[2019-07-09] MEDS ORDERED: *HR* Propofol 200 MG/20 ML VIAL IVP ONE (07:34)
[2019-07-09] MEDS ORDERED: *HR* Midazolam HCl 2 MG/2 ML VIAL ONE (07:34)
[2019-07-09] MEDS ORDERED: *HR* FentaNYL (PF) 100 MCG/2 ML VIAL ONE ×2 (07:34→08:24)
[2019-07-09] MEDS ORDERED: Dexamethasone 4 MG/ML VIAL ONE (07:38)
[2019-07-09] MEDS ORDERED: *HR* Succinylcholine 200 MG/10 ML VIAL IVP ONE (07:38)
[2019-07-09] MEDS ORDERED: Lidocaine -MPF 2% 2 ML VIAL ONE (07:38)
[2019-07-09] MEDS ORDERED: Ondansetron 4 MG/2 ML VIAL ONE (07:38)
[2019-07-09 08:10] LABS: Calcium 7.4 mg/dL (8.6-10.3)
[2019-07-09] MEDS ORDERED: *HR* PHENYLEPHRINE 1,000 MCG/10 ML SYRINGE IVP ONE ×2 (08:29→08:58)
[2019-07-09] MEDS ORDERED: Propofol 500 MG/50 ML INFUS..BTL ONE (08:35)
[2019-07-09] MEDS ORDERED: Ringers Solution, Lactated 1,000 ML IVC ONE (10:45)
[2019-07-09 11:14] LABS: Acinetobacter baumannii by PCR Not Detected (Not Detect); Candida albicans by PCR Not Detected (Not Detect); Candida glabrata by PCR Not Detected (Not Detect); Candida krusei by PCR Not Detected (Not Detect); Enterobacter cloacae Cmplx PCR Not Detected (Not Detect); Enterobacteriaceae by PCR Not Detected (Not Detect); Enterococcus by PCR Not Detected (Not Detect); Escherichia coli by PCR Not Detected (Not Detect); Klebsiella oxytoca by PCR Not Detected (Not Detect); Klebsiella pneumoniae by PCR Not Detected (Not Detect); Proteus by PCR Not Detected (Not Detect); Pseudomonas aeruginosa by PCR Not Detected (Not Detect); Serratia marcescens by PCR Not Detected (Not Detect); Staphylococcus aureus by PCR Not Detected (Not Detect); Staphylococcus by PCR Not Detected (Not Detect); Streptococcus agalactiae(B)PCR Not Detected (Not Detect); Streptococcus by PCR Not Detected (Not Detect); Streptococcus pneumoniae PCR Not Detected (Not Detect); Streptococcus pyogenes (A) PCR Not Detected (Not Detect)
[2019-07-09 11:15] LABS: Candida parapsilosis by PCR Not Detected (Not Detect); Candida tropicalis by PCR Not Detected (Not Detect)
[2019-07-09] MEDS: Insulin DETEMIR 100 UNIT/ML X5UNITS SQ SCH (11:18)
[2019-07-09] MEDS: ARIPiprazole 10 MG TABLET PO SCH (11:18)
[2019-07-09] MEDS: predniSONE 5 MG TABLET PO SCH (11:18)
[2019-07-09] MEDS: Insulin LISPRO 300 UNITS/3 ML VIAL SQ SCH ×3 (11:18→23:01)
[2019-07-09] MEDS: Ammonium Lactate 30 APPL/225 GM BOTTLE TP SCH ×2 (11:21→23:13)
[2019-07-09] MEDS: Nystatin POWDER 30 GM BOTTLE TP SCH (11:22)
[2019-07-09] MEDS: Sennosides/Docusate Sodium TABLET PO SCH ×2 (11:22→21:28)
[2019-07-09] MEDS ORDERED: Gentamicin 500 MG in 0.9 % Sodium Chloride 100 ML IVPB SCH ×2 (12:00→13:00)
[2019-07-09] MEDS ORDERED: Naloxone 0.4 MG/ML INJ IVP PRN (12:25)
[2019-07-09] MEDS ORDERED: Ondansetron 4 MG/2 ML VIAL IVP PRN (12:25)
[2019-07-09] MEDS ORDERED: *HR* Dextrose 50 % in Water (Syg) 50 ML SYRINGE IVP PRN (12:25)
[2019-07-09] MEDS ORDERED: Dextrose Gel 15 GM/37.5 ML TUBE PO PRN ×2 (12:25)
[2019-07-09] MEDS ORDERED: D5% in Water 1,000 ML IVC PRN (12:25)
[2019-07-09] MEDS ORDERED: ALPRAZolam 1 MG TABLET PO PRN (12:25)
[2019-07-09] MEDS: *HR* Heparin 5,000 UNIT/ML VIAL SQ SCH ×2 (14:10→21:28)
[2019-07-09] MEDS ORDERED: Nafcillin 2,000 MG in 0.9 % Sodium Chloride Mini Bag 100 ML IVPB SCH (15:00)
[2019-07-09] MEDS: Clotrimazole 1% CRM 15 GM TUBE TP SCH ×2 (15:32→23:13)
[2019-07-09] MEDS: *HR* HYDROcodone/Acet 10/325 mg TABLET PO PRN (15:56)
[2019-07-09] MEDS ORDERED: Aminoglycoside Consult 1 EACH MC ONE (16:34)
[2019-07-09] MEDS: Doxycycline 100 MG in 0.9 % Sodium Chloride Mini Bag 100 ML IVPB SCH (18:32)
[2019-07-09] MEDS ORDERED: Insulin LISPRO 300 UNITS/3 ML VIAL SQ SCH (21:00)
[2019-07-09] MEDS ORDERED: Insulin DETEMIR 100 UNIT/ML X5UNITS SQ SCH (21:00)
[2019-07-09] MEDS: Nafcillin 2,000 MG in 0.9 % Sodium Chloride Mini Bag 100 ML IVPB SCH (22:01)
[2019-07-10] MEDS: Nafcillin 2,000 MG in 0.9 % Sodium Chloride Mini Bag 100 ML IVPB SCH ×3 (02:43→11:14)
[2019-07-10] MEDS: Doxycycline 100 MG in 0.9 % Sodium Chloride Mini Bag 100 ML IVPB SCH ×2 (05:14→10:01)
[2019-07-10] MEDS: *HR* Heparin 5,000 UNIT/ML VIAL SQ SCH ×2 (05:14→11:32)
[2019-07-10] MEDS: Ammonium Lactate 30 APPL/225 GM BOTTLE TP SCH (08:40)
[2019-07-10] MEDS: Clotrimazole 1% CRM 15 GM TUBE TP SCH (08:40)
[2019-07-10] MEDS: Insulin LISPRO 300 UNITS/3 ML VIAL SQ SCH ×2 (08:40→11:27)
[2019-07-10] MEDS: Sennosides/Docusate Sodium TABLET PO SCH (08:50)
[2019-07-10] MEDS ORDERED: predniSONE 5 MG TABLET PO SCH (09:00)
[2019-07-10] MEDS ORDERED: Nystatin POWDER 30 GM BOTTLE TP SCH (09:00)
[2019-07-10] MEDS ORDERED: ARIPiprazole 10 MG TABLET PO SCH (09:00)
[2019-07-10] MEDS ORDERED: Doxycycline 100 MG CAPSULE PO ONE (09:03)
[2019-07-10] MEDS ORDERED: 0.9 % Sodium Chloride 1,000 ML IVC ONE (09:50)
[2019-07-10] MEDS: 0.9 % Sodium Chloride 1,000 ML IVC SCH (11:23)
[2019-07-10] MEDS: *HR* HYDROcodone/Acet 10/325 mg TABLET PO PRN (11:23)
[2019-07-10 11:24] VITALS: BP 120/76
[2019-07-10 12:08] LABS: Hematocrit 18.6 % (37.5-50.1); Hemoglobin 6.1 g/dL (12.9-16.9); Mean Corpuscular HGB Conc 32.8 g/dL (31.6-35.5); Mean Corpuscular Hemoglobin 27.9 pg (28.0-33.3); Mean Corpuscular Volume 84.9 fL (83.0-100.0); Mean Platelet Volume 10.1 fL (9.4-12.4); Platelet Count 159 K/mcL (140-400); Red Blood Count 2.19 M/mcL (4.19-5.50); Red Cell Distribution Width 13.2 % (11.5-14.5); White Blood Count 28.5 K/mcL (4.3-11.1)
[2019-07-10 12:25] LABS: Potassium 4.2 mEq/L (3.5-5.1)
[2019-07-10 12:26] LABS: Monocytes # 1.7 K/mcL (0.0-1.3); Neutrophils # 22.8 K/mcL (1.6-8.9)
[2019-07-10 12:33] LABS: Anisocytosis 1+ (Not Present); Platelet Estimate Normal (Normal)
[2019-07-10] MEDS ORDERED: *HR* LORazepam Oral Conc 2 MG/ML PO PRN (12:42)
== END 2019-07-10 16:35 | disposition home or self-care (01) | DRG 466 ==
LOC: EMEROOARM 14:42 → ICNU 19:19 → 3ANU 07-08 14:02
PROVIDERS: ADMIT Internal Medicine; ATTEND Internal Medicine

== ENCOUNTER 2019-11-14 21:01 | Observation (INO) ==
[2019-11-14] MEDS ORDERED: 0.9 % Sodium Chloride 250 ML IVC ONE (21:12)
[2019-11-14 22:16] LABS: Hematocrit 24.2 % (37.5-50.1); Hemoglobin 8.2 g/dL (12.9-16.9); Mean Corpuscular HGB Conc 33.9 g/dL (31.6-35.5); Mean Corpuscular Hemoglobin 28.5 pg (28.0-33.3); Mean Platelet Volume 10.4 fL (9.4-12.4); Platelet Count 293 K/mcL (140-400); Red Blood Count 2.88 M/mcL (4.19-5.50); Red Cell Distribution Width 13.5 % (11.5-14.5)
[2019-11-14 22:22] LABS: White Blood Count 37.9 K/mcL (4.3-11.1)
[2019-11-14 22:38] LABS: Albumin 2.2 g/dL (3.5-5.7); Albumin/Globulin Ratio 0.5 (1.1-2.2); Bilirubin,Total 0.3 mg/dL (0.3-1.0); Calcium 8.3 mg/dL (8.6-10.3); Globulin 4.2 g/dL (2.4-3.5); Potassium 4.3 mEq/L (3.5-5.1); Total Protein 6.4 g/dL (6.4-8.9)
[2019-11-14 22:43] LABS: Lymphocytes # 2.3 K/mcL (0.6-4.6); Neutrophils # 32.6 K/mcL (1.6-8.9)
[2019-11-14 22:45] LABS: Platelet Estimate Normal (Normal)
[2019-11-14] MEDS ORDERED: Piperacillin/Tazobactam 3.375 GM in 0.9 % Sodium Chloride Mini Bag 100 ML IVPB ONE (22:46)
[2019-11-15] MEDS ORDERED: Ondansetron 4 MG/2 ML VIAL IVP PRN (01:44)
[2019-11-15] MEDS ORDERED: Acetaminophen 325 MG TABLET PO PRN (01:44)
[2019-11-15] MEDS ORDERED: Naloxone 0.4 MG/ML INJ IVP PRN (01:44)
[2019-11-15] MEDS ORDERED: *HR* Dextrose 50 % in Water (Syg) 50 ML SYRINGE IVP PRN (01:48)
[2019-11-15] MEDS ORDERED: Dextrose Gel 15 GM/37.5 ML TUBE PO PRN ×2 (01:48)
[2019-11-15] MEDS ORDERED: D5% in Water 1,000 ML IVC PRN (01:48)
[2019-11-15] MEDS ORDERED: Dexamethasone 4 MG/ML VIAL IVP PRN (01:48)
[2019-11-15 02:58] LABS: Basophils % 0.4 %
[2019-11-15 03:00] LABS: Basophils # 0.2 K/mcL (0.0-0.2); Eosinophils # 0.1 K/mcL (0.0-0.6); Eosinophils % 0.2 %; Hematocrit 25.1 % (37.5-50.1); Hemoglobin 8.6 g/dL (12.9-16.9); Immature Granulocytes % 4.7 % (0-4); Lymphocytes # 2.9 K/mcL (0.6-4.6); Lymphocytes % 6.8 %; Mean Corpuscular HGB Conc 34.3 g/dL (31.6-35.5); Mean Corpuscular Hemoglobin 29.5 pg (28.0-33.3); Mean Platelet Volume 10.4 fL (9.4-12.4); Monocytes # 3.4 K/mcL (0.0-1.3); Monocytes % 7.8 %; Neutrophils # 34.4 K/mcL (1.6-8.9); Platelet Count 318 K/mcL (140-400); Red Blood Count 2.92 M/mcL (4.19-5.50); Red Cell Distribution Width 13.7 % (11.5-14.5); Segmented Neutrophils % 80.1 %
[2019-11-15 03:05] LABS: INR 1.3; Prothrombin Time 15.2 Seconds (9.4-12.1)
[2019-11-15] MEDS: 0.9 % Sodium Chloride 1,000 ML IVC SCH ×2 (03:47→13:07)
[2019-11-15 03:53] LABS: Bilirubin,Urine Negative (Negative); Blood,Urine Large (Negative); Clarity,Urine Turbid (Clear); Color,Urine Yellow (Yellow); Glucose,Urine (UA) 500 mg/dL (Normal); Ketones,Urine Negative (Negative); Leukocyte Esterase,Urine Large (Negative); Nitrite,Urine Negative (Negative); PH,Urine 7.5 pH Units (5.0-8.0); Protein,Urine >=300 mg/dL (Neg-Trace); Urobilinogen,Urine Normal (Normal)
[2019-11-15 04:06] LABS: Bacteria,Urine Many per hpf (None-Few); Squamous Epithelial Cell,Urine Many per lpf (None-Few); WBC,Urine TNTC per hpf (0-3)
[2019-11-15 04:16] LABS: Platelet Estimate Normal (Normal)
[2019-11-15 04:18] LABS: Albumin 2.1 g/dL (3.5-5.7); Albumin/Globulin Ratio 0.5 (1.1-2.2); Bilirubin,Total 0.3 mg/dL (0.3-1.0); Calcium 8.1 mg/dL (8.6-10.3); Globulin 4.1 g/dL (2.4-3.5); Magnesium 1.6 mg/dL (1.6-2.6); Phosphorous 3.5 mg/dL (2.7-4.5); Potassium 4.4 mEq/L (3.5-5.1); Total Protein 6.2 g/dL (6.4-8.9)
[2019-11-15] MEDS ORDERED: *HR* Heparin 5,000 UNIT/ML VIAL SQ SCH (06:00)
[2019-11-15 09:04] VITALS: BP 147/79
[2019-11-15] MEDS: Insulin LISPRO 300 UNITS/3 ML VIAL SQ SCH ×3 (09:16→15:19)
[2019-11-15] MEDS: Piperacillin/Tazobactam 3.375 GM in 0.9 % Sodium Chloride Mini Bag 100 ML IVPB SCH ×2 (09:41→15:13)
[2019-11-15] MEDS ORDERED: Dexamethasone 4 MG/ML VIAL IVP SCH (13:00)
[2019-11-15] MEDS ORDERED: Aminoglycoside Consult 1 EACH MC ONE (18:21)
[2019-11-15] MEDS ORDERED: Insulin LISPRO 300 UNITS/3 ML VIAL SQ SCH (21:00)
== END 2019-11-15 18:22 | disposition short-term general hospital (02) ==
LOC: EMEROOARM 21:01 → 2NENU 21:01 → SUATTDRO 11-15 00:37 → 2NENU 11-15 01:25
PROVIDERS: ADMIT Family Medicine; ATTEND Internal Medicine

== ENCOUNTER 2021-04-01 11:19 | Inpatient (IN) ==
[2021-04-01] MEDS ORDERED: Meropenem 1,000 MG in 0.9 % Sodium Chloride Mini Bag 100 ML IVPB STA (11:42)
[2021-04-01] MEDS ORDERED: 0.9 % Sodium Chloride 1,000 ML ONE ×4 (11:54→21:04)
[2021-04-01] MEDS: 0.9 % Sodium Chloride 1,000 ML IVC SCH ×2 (12:02→13:03)
[2021-04-01] MEDS ORDERED: *HR* Midazolam HCl 2 MG/2 ML VIAL ONE (12:10)
[2021-04-01] MEDS ORDERED: *HR* FentaNYL (PF) 100 MCG/2 ML VIAL ONE (12:11)
[2021-04-01] MEDS ORDERED: *HR* FentaNYL (PF) 100 MCG/2 ML VIAL IVP ONE (12:15)
[2021-04-01] MEDS ORDERED: *HR* Midazolam HCl 2 MG/2 ML VIAL IVP ONE (12:16)
[2021-04-01] MEDS ORDERED: SODIUM CHLORIDE 0.9% IVPB ONE (12:54)
[2021-04-01] MEDS ORDERED: GENTAMICIN IVPB ONE (12:54)
[2021-04-01] MEDS ORDERED: 0.9 % Sodium Chloride 250 ML ONE ×4 (12:58→19:08)
[2021-04-01] MEDS ORDERED: *HR* Norepinephrine 4 MG/4 ML VIAL IVC ONE ×2 (12:58→19:08)
[2021-04-01 13:05] LABS: Mean Corpuscular HGB Conc 30.9 g/dL (31.6-35.5); Mean Corpuscular Hemoglobin 28.4 pg (28.0-33.3); Mean Corpuscular Volume 91.8 fL (83.0-100.0); Mean Platelet Volume 9.2 fL (9.4-12.4); Red Blood Count 1.34 M/mcL (4.19-5.50); Red Cell Distribution Width 15.8 % (11.5-14.5)
[2021-04-01 13:06] LABS: INR 1.9; Prothrombin Time 21.5 Seconds (9.4-12.1)
[2021-04-01 13:09] LABS: Activated Partial Thrombo Time 53.6 Seconds (26.0-36.0)
[2021-04-01] MEDS: Norepinephrine 4 MG/254 ML IV.SOLN IVC SCH ×3 (13:10→22:48)
[2021-04-01 13:11] LABS: Platelet Count 90 K/mcL (140-400)
[2021-04-01 13:13] LABS: Hemoglobin 3.8 g/dL (12.9-16.9); White Blood Count 43.4 K/mcL (4.3-11.1)
[2021-04-01 13:14] LABS: Hematocrit 12.3 % (37.5-50.1)
[2021-04-01 13:31] LABS: Alanine Aminotransferase 20 Units/L (7-52); Albumin < 1.5 g/dL (3.5-5.7); Alkaline Phosphatase 213 Units/L (34-104); Aspartate Amino Transferase 43 Units/L (13-39); BUN/Creatinine Ratio 14 (6-26); Bilirubin,Direct 0.3 mg/dL (0.0-0.2); Bilirubin,Indirect 0.2 mg/dL (0.0-1.0); Bilirubin,Total 0.5 mg/dL (0.3-1.0); Blood Urea Nitrogen 76 mg/dL (6-20); Calcium 5.6 mg/dL (8.6-10.3); Carbon Dioxide 7 mEq/L (23-29); Chloride 111 mEq/L (98-107); Glucose 103 mg/dL (70-105); Lipase < 3 Units/L (11-82); Magnesium 1.5 mg/dL (1.6-2.6); Osmolality,Calculated 295 (280-300); Phosphorous 7.2 mg/dL (2.7-4.5); Potassium 4.2 mEq/L (3.5-5.1); Sodium 131 mEq/L (136-145); Total Protein 3.8 g/dL (6.4-8.9); Troponin I < 0.03 ng/mL (< 0.04); eGFR For African Americans 14 (> 60); eGFR For Non-African Americans 11 (> 60)
[2021-04-01 13:47] LABS: Lymphocytes # 0.9 K/mcL (0.6-4.6); Monocytes # 0.9 K/mcL (0.0-1.3); Neutrophils # 40.8 K/mcL (1.6-8.9); Platelet Estimate Decreased (Normal)
[2021-04-01 13:48] LABS: Anisocytosis 1+ (Not Present)
[2021-04-01] MEDS ORDERED: *HR* FentaNYL (PF) 1,000 MCG/20 ML VIAL ONE (15:27)
[2021-04-01] MEDS: FentaNYL (PF) 1,000 MCG/100 ML IV.SOLN IVC SCH (15:30)
[2021-04-01] MEDS ORDERED: 0.9 % Sodium Chloride 1,000 ML IVC ONE (15:45)
[2021-04-01] MEDS ORDERED: Naloxone 0.4 MG/ML INJ IVP PRN (16:06)
[2021-04-01] MEDS ORDERED: Acetaminophen 325 MG TABLET PO PRN (16:06)
[2021-04-01] MEDS ORDERED: D5% in Water 1,000 ML IVC PRN (16:32)
[2021-04-01] MEDS ORDERED: Dextrose Gel 15 GM/37.5 ML TUBE PO PRN ×2 (16:32)
[2021-04-01] MEDS ORDERED: Artificial Tears SOLN 15 ML BOTTLE BOTH EYES PRN (16:32)
[2021-04-01] MEDS ORDERED: Azithromycin 500 MG in 0.9 % Sodium Chloride 250 ML IVPB SCH (17:00)
[2021-04-01] MEDS: Octreotide 400 MCG in 0.9 % Sodium Chloride 100 ML IVC SCH (17:42)
[2021-04-01 17:53] LABS: Adenovirus Not Detected (Not Detect); Bordetella Pertussis Not Detected (Not Detect); Chlamydophila pneumoniae Not Detected (Not Detect); Coronavirus 229E Not Detected (Not Detect); Coronavirus HKU1 Not Detected (Not Detect); Coronavirus NL63 Not Detected (Not Detect); Coronavirus OC43 Not Detected (Not Detect); Human Metapneumovirus Not Detected (Not Detect); Human Rhinovirus/Enterovirus Not Detected (Not Detect); Influenza A Subtype 2009 H1 Not Detected (Not Detect); Influenza B Not Detected (Not Detect); Mycoplasma pneumoniae Not Detected (Not Detect); Parainfluenza Virus 1 Not Detected (Not Detect); Parainfluenza Virus 2 Not Detected (Not Detect); Parainfluenza Virus 3 Not Detected (Not Detect); Parainfluenza Virus 4 Not Detected (Not Detect); Respiratory Syncytial Virus Not Detected (Not Detect); SARS-CoV-2 Not Detected (Not Detect)
[2021-04-01] MEDS: Pantoprazole 40 MG VIAL IVP SCH (18:36)
[2021-04-01] MEDS: *HR* Dextrose 50 % in Water (Vial) 50 ML VIAL IVP PRN ×2 (20:12→20:20)
[2021-04-01] MEDS ORDERED: Albumin 25% 25gram/100mL 25 GM/100 ML IV.SOLN IVPB ONE (21:12)
[2021-04-01 21:27] LABS: D-Dimer 6822 ng/mLFEU (0-500)
[2021-04-01 21:31] LABS: Fibrinogen 189 mg/dL (169-393)
[2021-04-01] MEDS: Chlorhexidine Rinse 15 ML MOUTHWASH MM SCH (21:33)
[2021-04-01] MEDS: Insulin LISPRO 300 UNITS/3 ML VIAL SUBQ SCH (21:34)
[2021-04-01] MEDS: Artificial Tears SOLN 15 ML BOTTLE BOTH EYES SCH ×2 (21:34→23:24)
[2021-04-01 21:40] LABS: Hematocrit 24.8 % (37.5-50.1); Hemoglobin 8.1 g/dL (12.9-16.9); Mean Corpuscular HGB Conc 32.7 g/dL (31.6-35.5); Mean Corpuscular Hemoglobin 30.6 pg (28.0-33.3); Mean Corpuscular Volume 93.6 fL (83.0-100.0); Mean Platelet Volume 9.6 fL (9.4-12.4); Platelet Count 183 K/mcL (140-400); Red Blood Count 2.65 M/mcL (4.19-5.50); Red Cell Distribution Width 16.2 % (11.5-14.5)
[2021-04-01] MEDS: Meropenem 1,000 MG in 0.9 % Sodium Chloride Mini Bag 100 ML IVPB SCH (21:44)
[2021-04-01 21:48] LABS: White Blood Count 81.7 K/mcL (4.3-11.1)
[2021-04-01 22:21] LABS: Estimated Average Glucose 82 mg/dl; Hemoglobin A1C 4.5 %
[2021-04-01 23:03] LABS: ABG Base Excess -24 mEq/L (-2 to 3); ABG HCO3 6 mEq/L (21-27); ABG Oxygen Saturation 100 % (95-98); ABG PCO2 24 mmHg (35-45); ABG PH 6.99 pH Units (7.32-7.45); ABG PO2 448 mmHg (85-104); ABG TCO2 7 mEq/L (20-26); Blood Gas Modality AF; Blood Gas VT 650 cc
[2021-04-01 23:31] LABS: Basophils # 0.3 K/mcL (0.0-0.2); Basophils % 0.4 %; Hematocrit 23.4 % (37.5-50.1); Hemoglobin 7.8 g/dL (12.9-16.9); Lymphocytes % 2.7 %; Mean Corpuscular HGB Conc 33.3 g/dL (31.6-35.5); Mean Corpuscular Hemoglobin 30.8 pg (28.0-33.3); Mean Corpuscular Volume 92.5 fL (83.0-100.0); Mean Platelet Volume 9.4 fL (9.4-12.4); Monocytes # 3.2 K/mcL (0.0-1.3); Monocytes % 4.2 %; Platelet Count 165 K/mcL (140-400); Red Blood Count 2.53 M/mcL (4.19-5.50); Red Cell Distribution Width 15.9 % (11.5-14.5); Segmented Neutrophils % 87.7 %
[2021-04-01 23:33] LABS: Lymphocytes # 2.1 K/mcL (0.6-4.6); Neutrophils # 66.9 K/mcL (1.6-8.9)
[2021-04-01 23:34] LABS: White Blood Count 76.3 K/mcL (4.3-11.1)
[2021-04-01 23:44] LABS: Platelet Estimate Normal (Normal)
[2021-04-01] MEDS: Sodium Bicarbonate 150 MEQ in D5% in Water 1,000 ML IVC SCH (23:48)
[2021-04-02] MEDS: Insulin LISPRO 300 UNITS/3 ML VIAL SUBQ SCH ×3 (00:42→07:49)
[2021-04-02] MEDS: Octreotide 400 MCG in 0.9 % Sodium Chloride 100 ML IVC SCH ×2 (00:43→09:29)
[2021-04-02] MEDS: Norepinephrine 4 MG/254 ML IV.SOLN IVC SCH ×3 (02:34→07:37)
[2021-04-02 03:49] LABS: Nucleated Red Blood Cells 0.1 /100 WBC (0); Platelet Count 179 K/mcL (140-400)
[2021-04-02 03:50] LABS: Hematocrit 23.4 % (37.5-50.1); Hemoglobin 7.7 g/dL (12.9-16.9); Mean Corpuscular HGB Conc 32.9 g/dL (31.6-35.5); Mean Corpuscular Hemoglobin 30.2 pg (28.0-33.3); Mean Corpuscular Volume 91.8 fL (83.0-100.0); Red Blood Count 2.55 M/mcL (4.19-5.50); Red Cell Distribution Width 15.7 % (11.5-14.5)
[2021-04-02 03:55] LABS: INR 1.6; Prothrombin Time 18.6 Seconds (9.4-12.1)
[2021-04-02] MEDS ORDERED: Albumin 25% 25gram/100mL 25 GM/100 ML IV.SOLN IVPB ONE ×2 (03:56→04:35)
[2021-04-02] MEDS ORDERED: Vasopressin 40 UNIT in D5% in Water 100 ML IVC SCH (04:00)
[2021-04-02] MEDS ORDERED: 0.9 % Sodium Chloride 1,000 ML ONE (04:02)
[2021-04-02 04:05] LABS: Albumin 1.8 g/dL (3.5-5.7); Albumin/Globulin Ratio 0.6 (1.1-2.2); Bilirubin,Direct 0.6 mg/dL (0.0-0.2); Bilirubin,Indirect 0.4 mg/dL (0.0-1.0); Calcium 6.9 mg/dL (8.6-10.3); Globulin 3.2 g/dL (2.4-3.5); Magnesium 1.6 mg/dL (1.6-2.6); Phosphorous 8.1 mg/dL (2.7-4.5); Potassium 4.4 mEq/L (3.5-5.1)
[2021-04-02 04:10] LABS: White Blood Count 75.1 K/mcL (4.3-11.1)
[2021-04-02] MEDS: Artificial Tears SOLN 15 ML BOTTLE BOTH EYES SCH ×2 (04:26→07:49)
[2021-04-02 04:30] LABS: Anisocytosis 1+ (Not Present); Neutrophils # 70.6 K/mcL (1.6-8.9); Platelet Estimate Normal (Normal)
[2021-04-02] MEDS: Pantoprazole 40 MG VIAL IVP SCH (04:32)
[2021-04-02 04:34] LABS: ABG Base Excess -22 mEq/L (-2 to 3); ABG HCO3 6 mEq/L (21-27); ABG Oxygen Saturation 100 % (95-98); ABG PCO2 23 mmHg (35-45); ABG PH 7.05 pH Units (7.32-7.45); ABG PO2 279 mmHg (85-104); ABG TCO2 7 mEq/L (20-26); Blood Gas Modality ASSIST CONTROL; Blood Gas VT 650 cc
[2021-04-02] MEDS: Meropenem 1,000 MG in 0.9 % Sodium Chloride Mini Bag 100 ML IVPB SCH (06:21)
[2021-04-02] MEDS: FentaNYL (PF) 1,000 MCG/100 ML IV.SOLN IVC SCH (07:40)
[2021-04-02] MEDS: Sodium Bicarbonate 150 MEQ in D5% in Water 1,000 ML IVC SCH (07:47)
[2021-04-02] MEDS: Chlorhexidine Rinse 15 ML MOUTHWASH MM SCH (07:52)
[2021-04-02] MEDS ORDERED: *HR* LORazepam 2 MG/ML VIAL IVP PRN (09:16)
[2021-04-02 11:39] VITALS: BP 91/69
[2021-04-03 07:49] LABS: Acinetobacter baumannii by PCR Not Detected (Not Detect); Candida albicans by PCR Not Detected (Not Detect); Candida glabrata by PCR Not Detected (Not Detect); Candida krusei by PCR Not Detected (Not Detect); Candida parapsilosis by PCR Not Detected (Not Detect); Candida tropicalis by PCR Not Detected (Not Detect); Enterobacter cloacae Cmplx PCR Not Detected (Not Detect); Enterobacteriaceae by PCR Not Detected (Not Detect); Enterococcus by PCR Not Detected (Not Detect); Escherichia coli by PCR Not Detected (Not Detect); Klebsiella oxytoca by PCR Not Detected (Not Detect); Klebsiella pneumoniae by PCR Not Detected (Not Detect); Proteus by PCR Not Detected (Not Detect); Pseudomonas aeruginosa by PCR Not Detected (Not Detect); Serratia marcescens by PCR Not Detected (Not Detect); Staphylococcus aureus by PCR Not Detected (Not Detect); Staphylococcus by PCR Not Detected (Not Detect); Streptococcus agalactiae(B)PCR Not Detected (Not Detect); Streptococcus by PCR Not Detected (Not Detect); Streptococcus pneumoniae PCR Not Detected (Not Detect); Streptococcus pyogenes (A) PCR Not Detected (Not Detect)
== END 2021-04-02 13:20 | disposition expired | DRG 720 ==
LOC: EMEROOARM 11:19 → ICNU 18:49
PROVIDERS: ADMIT Pediatrics; ATTEND Pediatrics